=== PATIENT | male | born 1960 | race Caucasian/White ===

== ENCOUNTER 2018-10-25 12:27 | Observation (INO) ==
[2018-10-25] MEDS ORDERED: 0.9 % Sodium Chloride 1,000 ML IVC ONE ×2 (12:42→18:08)
[2018-10-25] MEDS ORDERED: Isovue-370 500 ML BOTTLE IVP ONE (13:05)
[2018-10-25 13:14] LABS: Basophils % 0.3 %; Eosinophils % 0.3 %; Hematocrit 32.6 % (37.5-50.1); Hemoglobin 10.7 g/dL (12.9-16.9); Immature Granulocytes % 0.6 % (0-4); Lymphocytes % 9.9 %; Mean Corpuscular HGB Conc 32.8 g/dL (31.6-35.5); Mean Corpuscular Hemoglobin 29.1 pg (28.0-33.3); Mean Corpuscular Volume 88.6 fL (83.0-100.0); Monocytes # 0.6 K/mcL (0.0-1.3); Monocytes % 5.9 %; Neutrophils # 8.5 K/mcL (1.6-8.9); Platelet Count 473 K/mcL (140-400); Red Blood Count 3.68 M/mcL (4.19-5.50); Red Cell Distribution Width 13.2 % (11.5-14.5); White Blood Count 10.3 K/mcL (4.3-11.1)
[2018-10-25 13:17] LABS: INR 1.4; Prothrombin Time 16.3 Seconds (9.4-12.1)
[2018-10-25 13:19] LABS: Activated Partial Thrombo Time 29.3 Seconds (26.0-36.0)
--- NOTE | 2018-10-25 13:20 | Emergency Department Note ---
Disposition Clinical Impression: Fever of unknown origin, Esophageal mass, Elevated procalcitonin Disposition: Admitted As Inpatient Condition: Good Time of Disposition: 17:26 Fever HPI - General Chief Complaint: ED Fever Stated Complaint: fever, abnormal CT Time Seen by Provider: 10/25/18 12:36 Source: patient Limitations: no limitations Nursing Notes Reviewed: Yes Vital Signs Reviewed: Yes - History of Present Illness HPI Narrative: 57-year-old male otherwise healthy presents to the emergency department with abnormal CT scan of the abdomen and fevers. He has been follow with his primary care provider Sakina Philip who recently treated him for urinary tract infection roughly 2 weeks ago. Since then he has had progressive fevers which subsequently led to a CT scan on the . CT scan showed concerns for mass and metastasis. He sensed had persistent fevers with a 12 pound weight loss in the past month with night sweats. No family history of cancer. He was a former smoker. He denies any urinary symptoms at this time. Denies any discomfort chest pain shortness of breath or cough. He has noticed his abdomen is slightly larger than usual. No prior abdominal surgeries. He is scheduled to follow up with oncology but has not had a scheduled appointment yet they are awaiting a call back. Because of the persistent fevers he spoke to his primary care provider who told him to come here to be further evaluated. Pt Subjective Complaint: fever - Related Data Home Medications Medication Instructions Recorded Confirmed Omeprazole [PriLOSEC] 20 mg PO DAILY 02/05/16 10/25/18 Allergies Allergy/AdvReac Type Severity Reaction Status Date / Time No Known Allergies Allergy Verified 07/14/17 09:31 All systems ED: reviewed and negative except as stated. Review of Systems: As Per HPI Constitutional: Reports: fever, weight change, night sweats ENT ED: Denies: congestion Cardiovascular: Denies: chest pain Respiratory: Denies: dyspnea Gastrointestinal: Denies: abdominal pain, nausea, vomiting, melena, hematochezia Genitourinary: Denies: dysuria Musculoskeletal: Denies: back pain Integumentary: Denies: rash, abrasion Endocrine: Denies: fatigue Fever PMH - Past Medical History Medical history: Reports: GERD Psychiatric history: Reports: no psych history - Social History Smoking Status: Never smoker Alcohol use: Reports: occasionally Drug use: Reports: none Physical Exam - General Limitations: no limitations General appearance: alert, in no apparent distress, other (Warm to the touch) - Head Head exam: atraumatic, normocephalic, normal inspection - Eye Eye exam: Present: normal appearance, PERRL, EOMI - ENT ENT exam: normal exam, normal oropharynx, mucous membranes moist - Neck Neck exam: Present: normal inspection, full ROM, trachea midline - Chest Chest inspection: Present: normal inspection, symmetric chest wall rise - Respiratory Respiratory exam: Present: normal lung sounds bilaterally. Absent: respiratory distress, wheezes - Cardiovascular Cardiovascular exam: Present: regular rate, normal rhythm, normal heart sounds - Expanded Cardiovascular Exam Peripheral pulses: 2+: radial (R), radial (L) - Abdominal Exam Abdominal exam: Present: soft, Non-Tender, normal bowel sounds. Absent: tenderness, distention, guarding, rebound, rigidity, pulsatile mass, hernia - Extremities Exam Extremities exam: Present: normal inspection, full ROM. Absent: tenderness, pedal edema - Back Exam Back exam: Present: normal inspection, full ROM. Absent: tenderness - Neurological Exam Neurological exam: Present: alert, oriented X3, normal gait - Psychiatric Psychiatric exam: Present: normal affect, normal mood - Skin Skin exam: Present: warm, dry, intact, normal color. Absent: rash, cyanosis, diaphoresis Course Course Narrative: Patient presents with persistent fever and presumed esophageal mass with metastasis. Suspect this is likely due to malignancy but cannot roll out sepsis. Workup initiated including CT scan with contrast. Patient will likely require admission for further evaluation to to have persistent fevers. He otherwise appears in no acute distress with no obvious signs of infection. Lungs are clear auscultation bilaterally. Denies any urinary symptoms. - Reevaluation(s) Reevaluation #1: Review of his labs, no leukocytosis. Chronic stable anemia. His lactate is less than 1. His pro-calcitonin is elevated. There is no obvious sources infection in his urine or chest x-ray. 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 We will discuss with oncology on possible management treatment whether this can stay here versus transfer to [facility] Time: 16:50 Reevaluation #2: After discussion with oncology, patient is appropriate for admission here. Discussed options with the patient and significant other. They wish to stay overnight and discuss options with oncology team here. We also discussed possible transfer to [facility], they wish to await consultation here prior to exploring other options. Patients otherwise stable. - Consultations Consultation #1: Spoke with on-call oncologist Dr. Long and states that we can admit the patient here for further management and evaluation. We discussed elevated pro-ca lcitonin level in at this time will empirically treated with Zosyn due to the unknown persistent fever. This is likely due to the malignancy but unknown. Time: 17:25 Consultation #2: Spoke with on-call hospitalist evy Morales to admit for fever, esophageal mass, and elevated procalcitonin. No further orders at this time Vital Signs Temperature 102.5 F H 10/25/18 12:29 Pulse Rate 108 10/25/18 12:29 Respiratory Rate 18 10/25/18 12:29 Blood Pressure 146/88 10/25/18 12:29 O2 Sat by Pulse Oximetry 97 10/25/18 12:29 Temperature 102.5 F H 10/25/18 12:29 Pulse Rate 108 10/25/18 12:29 Respiratory Rate 18 10/25/18 12:29 Blood Pressure 146/88 10/25/18 12:29 O2 Sat by Pulse Oximetry 97 10/25/18 12:29 Oxygen Delivery Oxygen Delivery Room Air Fever - MDM Narrative Medical decision making narrative: Patient was discussed with my attending physician who agrees with ED management and final disposition. They independently evaluated the patient. Please refer to their attestation to this encounter for additional information. This note was generated by [employer] voice recognition software and as a result grammatical or spelling errors may occur using this program. - Medical Records Medical records reviewed: Yes I reviewed the patient's medical records. - Lab Data Lab results reviewed: Yes I reviewed the patient's lab results. Result diagrams: 10/25/18 12:50 10/25/18 12:50 Lab Results 10/25/18 10/25/18 10/25/18 Range/Units 12:50 12:50 12:50 WBC 10.3 (4.3-11.1) K/mcL RBC 3.68 L (4.19-5.50) M/mcL Hgb 10.7 L (12.9-16.9) g/dL Hct 32.6 L (37.5-50.1) % MCV 88.6 (83.0-100.0) fL MCH 29.1 (28.0-33.3) pg MCHC 32.8 (31.6-35.5) g/dL RDW 13.2 (11.5-14.5) % Plt Count 473 H (140-400) K/mcL MPV 10.0 (9.4-12.4) fL Immature Gran % 0.6 (0-4) % Seg Neutrophils % 83.0 % Lymphocytes % 9.9 % Monocytes % 5.9 % Eosinophils % 0.3 % Basophils % 0.3 % Neutrophils # 8.5 (1.6-8.9) K/mcL Lymphocytes # 1.0 (0.6-4.6) K/mcL Monocytes # 0.6 (0.0-1.3) K/mcL Eosinophils # 0.0 (0.0-0.6) K/mcL Basophils # 0.0 (0.0-0.2) K/mcL PT 16.3 H (9.4-12.1) Seconds INR 1.4 APTT 29.3 (26.0-36.0) Seconds Sodium 131 L (136-145) mEq/L Potassium 3.3 L (3.5-5.1) mEq/L Chloride 95 L (98-107) mEq/L Carbon Dioxide 24 (23-29) mEq/L BUN 13 (6-20) mg/dL Creatinine 0.95 (0.70-1.30) mg/dL Est GFR ( Amer) > 60 (> 60) Est GFR (Non-Af Amer) > 60 (> 60) BUN/Creatinine Ratio 14 (6-26) Glucose 96 (70-105) mg/dL Calculated Osmolality 272 L (280-300) Lactic Acid (0.5-2.2) mmol/L Calcium 8.5 L (8.6-10.3) mg/dL Phosphorus 2.3 L (2.7-4.5) mg/dL Magnesium 1.8 (1.6-2.6) mg/dL Total Bilirubin 0.4 (0.3-1.0) mg/dL Direct Bilirubin 0.2 (0.0-0.2) mg/dL Indirect Bilirubin 0.2 (0.0-1.2) mg/dL AST 22 (13-39) Units/L ALT 25 (7-52) Units/L Alkaline Phosphatase 163 H (34-104) Units/L Troponin I 0.03 (< 0.04) ng/mL Serum Total Protein 7.1 (6.4-8.9) g/dL Albumin 3.1 L (3.5-5.7) g/dL Globulin 4.0 H (2.4-3.5) g/dL Albumin/Globulin Ratio 0.8 L (1.1-2.2) Procalcitonin (0.00-0.15) ng/mL Urine Color (Yellow) Urine Clarity (Clear) Urine pH (5.0-8.0) pH Units Ur Specific [place] (1.010-1.025) Urine Protein (Neg-Trace) mg/dL Urine Glucose (UA) (Normal) mg/dL Urine Ketones (Negative) mg/dL Urine Blood (Negative) Urine Nitrite (Negative) Urine Bilirubin (Negative) Urine Urobilinogen (Normal) mg/dL Ur Leukocyte Esterase (Negative) Urine Microscopic RBC (0-3) per hpf Urine Microscopic WBC (0-3) per hpf Ur Squamous Epith Cells (None-Few) per lpf Urine Bacteria (None-Few) per hpf Hyaline Casts (None-Few) per lpf Ur Culture Indicated? (NO) 10/25/18 10/25/18 10/25/18 Range/Units 12:50 12:50 13:33 WBC (4.3-11.1) K/mcL RBC (4.19-5.50) M/mcL Hgb (12.9-16.9) g/dL Hct (37.5-50.1) % MCV (83.0-100.0) fL MCH (28.0-33.3) pg MCHC (31.6-35.5) g/dL RDW (11.5-14.5) % Plt Count (140-400) K/mcL MPV (9.4-12.4) fL Immature Gran % (0-4) % Seg Neutrophils % % Lymphocytes % % Monocytes % % Eosinophils % % Basophils % % Neutrophils # (1.6-8.9) K/mcL Lymphocytes # (0.6-4.6) K/mcL Monocytes # (0.0-1.3) K/mcL Eosinophils # (0.0-0.6) K/mcL Basophils # (0.0-0.2) K/mcL PT (9.4-12.1) Seconds INR APTT (26.0-36.0) Seconds Sodium (136-145) mEq/L Potassium (3.5-5.1) mEq/L Chloride (98-107) mEq/L Carbon Dioxide (23-29) mEq/L BUN (6-20) mg/dL Creatinine (0.70-1.30) mg/dL Est GFR ( Amer) (> 60) Est GFR (Non-Af Amer) (> 60) BUN/Creatinine Ratio (6-26) Glucose (70-105) mg/dL Calculated Osmolality (280-300) Lactic Acid 0.7 (0.5-2.2) mmol/L Calcium (8.6-10.3) mg/dL Phosphorus (2.7-4.5) mg/dL Magnesium (1.6-2.6) mg/dL Total Bilirubin (0.3-1.0) mg/dL Direct Bilirubin (0.0-0.2) mg/dL Indirect Bilirubin (0.0-1.2) mg/dL AST (13-39) Units/L ALT (7-52) Units/L Alkaline Phosphatase (34-104) Units/L Troponin I (< 0.04) ng/mL Serum Total Protein (6.4-8.9) g/dL Albumin (3.5-5.7) g/dL Globulin (2.4-3.5) g/dL Albumin/Globulin Ratio (1.1-2.2) Procalcitonin 9.13 H (0.00-0.15) ng/mL Urine Color Yellow (Yellow) Urine Clarity Clear (Clear) Urine pH 7.0 (5.0-8.0) pH Units Ur Specific [place] 1.021 (1.010-1.025) Urine Protein 30 H (Neg-Trace) mg/dL Urine Glucose (UA) Normal (Normal) mg/dL Urine Ketones Negative (Negative) mg/dL Urine Blood Negative (Negative) Urine Nitrite Negative (Negative) Urine Bilirubin Negative (Negative) Urine Urobilinogen Normal (Normal) mg/dL Ur Leukocyte Esterase Negative (Negative) Urine Microscopic RBC 0-3 (0-3) per hpf Urine Microscopic WBC 0-3 (0-3) per hpf Ur Squamous Epith Cells Moderate H (None-Few) per lpf Urine Bacteria None Seen (None-Few) per hpf Hyaline Casts None Seen (None-Few) per lpf Ur Culture Indicated? NO (NO) - Radiology Data Radiology results reviewed: Yes I reviewed the patient's radiology results. Abdomen/Pelvis CT 10/25/18 13:05 IMPRESSION: 1. Persistent distal esophageal mass, most consistent with primary esophageal carcinoma. 2. Stable large focus of intrahepatic metastatic disease. 3. Stable subcarinal, distal paraesophageal, gastrohepatic ligament, and bennie hepatic lymphadenopathy, most consistent with locoregional metastatic disease. D/ / 10/25/2018 16:45:17 Blanco Castillo MD / edwin Interpreting Provider: Blanco Castillo MD Chest CT 10/25/18 13:05 IMPRESSION: 1. Persistent distal esophageal mass, most consistent with primary esophageal carcinoma. 2. Stable large focus of intrahepatic metastatic disease. 3. Stable subcarinal, distal paraesophageal, gastrohepatic ligament, and bennie hepatic lymphadenopathy, most consistent with locoregional metastatic disease. D/ / 10/25/2018 16:45:17 Blanco Castillo MD / edwin Interpreting Provider: Blanco Castillo MD - EKG Data EKG attestation: Yes I reviewed and interpreted this EKG. EKG results narrative: EKG performed 1254 normal sinus rhythm 87 beats per minute, normal axis, early R wave progression, no ST elevation or depression. Intervals appear within normal limits. Compared to prior EKG performed 02/04/2016 shows similar consistent findings. No acute ischemic changes. Attestation Statement - Attestation Attestation: I, Kahlil Jeffries, examined this patient and my medical decision-making was reviewed with the SHOE SINGER/PA/Advanced Practice Nurse/Resident Physician. I agree with the documented findings, disposition and treatment plan as described except to the extent set forth below. 57-year-old male presents emergency Department with concerns of fever. Patient was recently diagnosed with esophageal and liver cancer. He was treated for a possible urinary tract infection however his fever did not improve. Patient does not have pain in the emergency department. He denies nausea, vomiting, diarrhea, hematochezia, melena. Repeat CT of the chest abdomen pelvis showed his cancer but does not show an obvious source of infection. He did have an elevated pro-calcitonin and I believe that he probably has a bacterial infection. Blood cultures were taken and antibiotics were started. We spoke with the oncologist who is comfortable with him staying at this facility for further workup. Patient was offered transfer to [facility] for evaluation of possible surgical intervention. Patient declined and wishes to stay at [facility].
[2018-10-25 13:45] LABS: Bilirubin,Urine Negative (Negative); Blood,Urine Negative (Negative); Clarity,Urine Clear (Clear); Color,Urine Yellow (Yellow); Glucose,Urine (UA) Normal (Normal); Ketones,Urine Negative (Negative); Leukocyte Esterase,Urine Negative (Negative); Nitrite,Urine Negative (Negative); Protein,Urine 30 mg/dL (Neg-Trace); Specific Gravity,Urine 1.021 (1.010-1.025); Urobilinogen,Urine Normal (Normal)
[2018-10-25 13:48] LABS: Bacteria,Urine None Seen per hpf (None-Few); Hyaline Casts,Urine None Seen per lpf (None-Few); RBC,Urine 0-3 per hpf (0-3); Squamous Epithelial Cell,Urine Moderate per lpf (None-Few); WBC,Urine 0-3 per hpf (0-3)
[2018-10-25 13:59] LABS: Troponin I 0.03 ng/mL (< 0.04)
[2018-10-25 15:05] LABS: Alanine Aminotransferase 25 Units/L (7-52); Albumin 3.1 g/dL (3.5-5.7); Albumin/Globulin Ratio 0.8 (1.1-2.2); Alkaline Phosphatase 163 Units/L (34-104); Aspartate Amino Transferase 22 Units/L (13-39); BUN/Creatinine Ratio 14 (6-26); Bilirubin,Direct 0.2 mg/dL (0.0-0.2); Bilirubin,Indirect 0.2 mg/dL (0.0-1.2); Bilirubin,Total 0.4 mg/dL (0.3-1.0); Blood Urea Nitrogen 13 mg/dL (6-20); Calcium 8.5 mg/dL (8.6-10.3); Carbon Dioxide 24 mEq/L (23-29); Chloride 95 mEq/L (98-107); Glucose 96 mg/dL (70-105); Magnesium 1.8 mg/dL (1.6-2.6); Osmolality,Calculated 272 (280-300); Phosphorous 2.3 mg/dL (2.7-4.5); Potassium 3.3 mEq/L (3.5-5.1); Sodium 131 mEq/L (136-145); Total Protein 7.1 g/dL (6.4-8.9); eGFR For African Americans > 60 (> 60); eGFR For Non-African Americans > 60 (> 60)
[2018-10-25] MEDS ORDERED: Piperacillin/Tazobactam 3.375 GM in 0.9 % Sodium Chloride Mini Bag 100 ML IVPB ONE (17:18)
--- NOTE | 2018-10-25 18:05 | Event Note ---
Date of Encounter: 10/25/18 Time of Encounter: 18:00 I had a discussion with the patient and his at bedside about the newly diagnosed esophageal cancer with possible metastasis, the discussion was focused on translating to [facility] versus is staying locally, even though the patient appreciated the convenience of being initiating treatment locally, there is a concern about the severity of his condition giving his young age, and then and for multidisciplinary team include surgical oncology expertise, the patient expressed wishes to be transferred to [facility] however he requested that his transferred to be in the morning since his 's cannot drive and he really would like to have her along with him. I discussed with Dr. Rdz and the admission team and decision was made to admit the patient overnight and she ate fluid and antibiotics and arrange for transfer in AM.
[2018-10-25] MEDS ORDERED: Ondansetron 4 MG/2 ML VIAL IVP PRN (18:06)
[2018-10-25] MEDS ORDERED: Naloxone 0.4 MG/ML INJ IVP PRN (18:06)
--- NOTE | 2018-10-25 18:06 | Internal Med History&Physical ---
<Hernan Rdz - Last Filed: 10/25/18 19:03> Date of Encounter: 10/25/18 Internal Medicine - H&P: HPI History of present illness: Mr. Castrejon is a 57 year old male Internal Medicine - H&P: Meds Omeprazole [PriLOSEC] 20 mg PO DAILY 02/05/16 [History] Allergy/AdvReac Type Severity Reaction Status Date / Time No Known Allergies Allergy Verified 07/14/17 09:31 All Systems PM: A 10-system review of systems was performed and is negative for pertinent findings except as documented above in the HPI. - Constitutional Vitals: Temp Pulse Resp BP Pulse Ox 98.6 F 79 15 146/85 97 10/25/18 18:19 10/25/18 18:19 10/25/18 18:19 10/25/18 18:19 10/25/18 18:19 Internal Med - H&P Results - Labs CBC & Chem 7: 10/25/18 12:50 10/25/18 12:50 Labs: Short CBC 10/25/18 Range/Units 12:50 WBC 10.3 (4.3-11.1) K/mcL Hgb 10.7 L (12.9-16.9) g/dL Hct 32.6 L (37.5-50.1) % Plt Count 473 H (140-400) K/mcL Neutrophils # 8.5 (1.6-8.9) K/mcL BMP 10/25/18 12:50 Sodium 131 L Potassium 3.3 L Chloride 95 L Carbon Dioxide 24 BUN 13 Creatinine 0.95 Glucose 96 Calcium 8.5 L Cardiac Enzymes 10/25/18 Range/Units 12:50 Troponin I 0.03 (< 0.04) ng/mL Liver Function 10/25/18 Range/Units 12:50 Total Bilirubin 0.4 (0.3-1.0) mg/dL Direct Bilirubin 0.2 (0.0-0.2) mg/dL AST 22 (13-39) Units/L ALT 25 (7-52) Units/L Alkaline Phosphatase 163 H (34-104) Units/L Albumin 3.1 L (3.5-5.7) g/dL Urine 10/25/18 Range/Units 13:33 Urine Color Yellow (Yellow) Urine Clarity Clear (Clear) Urine pH 7.0 (5.0-8.0) pH Units Ur Specific [place] 1.021 (1.010-1.025) Urine Protein 30 H (Neg-Trace) mg/dL Urine Glucose (UA) Normal (Normal) mg/dL - Impressions ITS Impressions Abdomen/Pelvis CT 10/25/18 13:05 IMPRESSION: 1. Persistent distal esophageal mass, most consistent with primary esophageal carcinoma. 2. Stable large focus of intrahepatic metastatic disease. 3. Stable subcarinal, distal paraesophageal, gastrohepatic ligament, and bennie hepatic lymphadenopathy, most consistent with locoregional metastatic disease. D/ / 10/25/2018 16:45:17 Blanco Castillo MD / edwin Interpreting Provider: Blanco Castillo MD Chest CT 10/25/18 13:05 IMPRESSION: 1. Persistent distal esophageal mass, most consistent with primary esophageal carcinoma. 2. Stable large focus of intrahepatic metastatic disease. 3. Stable subcarinal, distal paraesophageal, gastrohepatic ligament, and bennie hepatic lymphadenopathy, most consistent with locoregional metastatic disease. D/ / 10/25/2018 16:45:17 Blanco Castillo MD / edwin Interpreting Provider: Blanco Castillo MD - Time Spent With Patient Total time spent is greater than 50% in coordination of care (as documented) at patient's floor/unit and/or counseling patient: - Attending Attestation I examined this patient and my medical decision-making was reviewed with the Resident Physician on 10/25/18. I agree with the documented findings, disposition and treatment plan as described except to the extent set forth below. Mr Castrejon is 57y/o male with no hx presented to ED with fever and abnormal CT. He denies pain but has had weight loss. Recent treatment for UTI. CT shows distal esophageal mass and liver met. Pt seen in ED with at bedside. Exam: Alert. Comfortable Mucus membranes moist. Heart reg. Lungs clear. F urther exam as above. CT - large distal esophageal mass with liver met Plan: Monitor. Pt deciding to go to [facility]. IV abx for sepsis. 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 Castrejon is a 57 year old male with history of GERD who presents to [facility] with one month history of intermittent fever. The patient states that he first started experiencing fever and flulike symptoms on 09/12/18, at which time he called a [facility] and was prescribed Tamiflu for 5 days. Apparently at that time he felt better following that course of medication however on 10/08 he started to develop flulike symptoms again including high-grade fever as high as 103. The patient was overall just feeling bad with fever, low back pain specifically on the left and generalized malaise. In addition this he was having sweats and chills. The patient called his [facility] again and was told to go to an urgent care, and when he did he was diagnosed with urinary tract infection at which time he was initially placed on amoxicillin however upon finding cultures he was given ciprofloxacin which he finished approximately one week ago. At that time he had ulcers which were positive for Klebsiella oxytoca. Despite treatment with ciprofloxacin, the patient continued to have fevers and generalized malaise as well as generalized weakness, and he generally just did not start to feel better. He also found a lump in his right breast and so he saw a new primary care physician who ordered a mammogram. Then, towards the end of September, because he was continuing to have left lower flank pain, the patient had a CT of the abdomen and pelvis at which time he was found to have a masslike appearance of the distal esophagus as well as a large liver mass suspicious for metastatic liver disease. The patient continued to feel bad until he finally presented to the hospital today. At this time, the patient says that he is continues to have flulike symptoms, generalized malaise, high fevers and chills. He apparently is unable to keep h imself warm and has been laying outside in the hot sun with blankets on in order to warm up. In addition of this, the patient has had very little appetite in general, and has not had interest in eating. He has had approximately 12 pounds weight loss over the course of one month which is unexplained. He denies any chest pains, shortness of breath, cough, sputum production, abdominal pain, nausea, vomiting, diarrhea, hematochezia, dysuria, urinary frequency, hematuria. In general, his review of systems is overall negative. In the emergency room, the patient had labs which were significant for a sodium of 131, potassium 3.3, hemoglobin 10.7, INR 1.4, alkaline phosphatase 163, pro-calcitonin 9.13. He did meet sepsis criteria with a temperature 102.5, heart rate 108, with pneumonia vs. UTI as possible infectious sources given history. The patient had CTs of his chest and abdomen which showed redemonstration of a distal esophageal mass consistent with primary esophageal carcinoma and intrahepatic metastatic disease as well as substantial paraesophageal and intra-abdominal lymphadenopathy. The patient received 1 L bolus of fluid and was started on Zosyn for empiric coverage. Upon reviewing films and medical history, the patient was offered transfer to [facility] immediately however his is unable to drive at night due to recent eye infections and it was determined that it would be better to wait until the morning. Social Hx: The patient lives at home with his . 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 He denies tobacco use as he quit approximately 7 years ago. Infrequent use of alcohol, denies illicit drug use. Drinks approximately 4 bottles of Mountain Dew a day. Family Hx: Extensive family history of lung cancer however he does have extensive family history of smoking Surgical Hx: He apparently had some nodules in his neck removed which were considered to be benign and has had multiple orthopedic surgeries as well which are noncontributory Past Med Surg Social Fam HX - Past Medical History Medical history: GERD Additional medical history: skin Psychiatric history: no psych history - Past Surgical History Additional surgical history: throat surgery - Social History Smoking Status: Never smoker Smokeless Tobacco Status: No Alcohol use: occasionally Drug use: none All Systems PM: A 10-system review of systems was performed and is negative for pertinent findings except as documented above in the HPI. Review of systems: Constitutional: Admits to fevers, chills, 12 pounds weight loss over one month, generalized fatigue Head/Neck: Denies WILSON, neck stiffness EENT: Denies vision changes/blurriness, rhinorrhea, congestion, sore throat CVS: Denies chest pain, palpitations, DIAZ, orthopnea, edema, PND Pulm: Denies SOB, cough, sputum, hemoptysis, wheezing GI: Denies abdominal pain, nausea, vomiting, diarrhea, constipation, melena, hematemasis : Denies dysuria, increased frequency, urgency, hematuria Heme: Denies ease of bleeding or bruising MSK: Denies joint pain, limited ROM Skin: Denies rashes, color changes Neuro: Denies WILSON, paresthesias - Constitutional Vitals: Temp Pulse Resp BP Pulse Ox 102.5 F H 108 18 146/88 97 10/25/18 12:29 10/25/18 12:29 10/25/18 12:29 10/25/18 12:29 10/25/18 12:29 Exam: Gen: Vitals noted. No acute distress. Eyes: anicteric sclerae, moist conjunctivae; no lid-lag; Pupils equal and reactive to light HENT: Atraumatic; oropharynx clear with moist mucous membranes and no mucosal ulcerations; normal hard and soft palate Neck: Trachea midline; supple, no thyromegaly or lymphadenopathy Cardiac: RRR, no murmur, +S1/S2 Pulmonary: CTA bilaterally, no wheezes, rales or rhonchi, equal chest expansion Abdomen: soft, nontender, no guarding. There is mild distention however no tenderness with this. No masses or hepatosplenomegaly MSK: ROM intact, no joint swelling noted Extremities: no BLE edema, nontender calf, no cyanosis or clubbing Skin: Normal temperature, turgor and texture; no rash, ulcers or subcutaneous nodules Neuro: moves all extremities, no focal deficits. Psych: Appropriate mood and behavior. A&Ox3 Internal Med - H&P Results - Labs CBC & Chem 7: 10/25/18 12:50 10/25/18 12:50 Labs: Short CBC 10/25/18 Range/Units 12:50 WBC 10.3 (4.3-11.1) K/mcL Hgb 10.7 L (12.9-16.9) g/dL Hct 32.6 L (37.5-50.1) % Plt Count 473 H (140-400) K/mcL Neutrophils # 8.5 (1.6-8.9) K/mcL BMP 10/25/18 12:50 Sodium 131 L Potassium 3.3 L Chloride 95 L Carbon Dioxide 24 BUN 13 Creatinine 0.95 Glucose 96 Calcium 8.5 L Cardiac Enzymes 10/25/18 Range/Units 12:50 Troponin I 0.03 (< 0.04) ng/mL Liver Function 10/25/18 Range/Units 12:50 Total Bilirubin 0.4 (0.3-1.0) mg/dL Direct Bilirubin 0.2 (0.0-0.2) mg/dL AST 22 (13-39) Units/L ALT 25 (7-52) Units/L Alkaline Phosphatase 163 H (34-104) Units/L Albumin 3.1 L (3.5-5.7) g/dL Urine 10/25/18 Range/Units 13:33 Urine Color Yellow (Yellow) Urine Clarity Clear (Clear) Urine pH 7.0 (5.0-8.0) pH Units Ur Specific [place] 1.021 (1.010-1.025) Urine Protein 30 H (Neg-Trace) mg/dL Urine Glucose (UA) Normal (Normal) mg/dL - Impressions ITS Impressions Abdomen/Pelvis CT 10/25/18 13:05 IMPRESSION: 1. Persistent distal esophageal mass, most consistent with primary esophageal carcinoma. 2. Stable large focus of intrahepatic metastatic disease. 3. Stable subcarinal, distal paraesophageal, gastrohepatic ligament, and bennie hepatic lymphadenopathy, most consistent with locoregional metastatic disease. D/ / 10/25/2018 16:45:17 Blanco Castillo MD / edwin Interpreting Provider: Blanco Castillo MD Chest CT 10/25/18 13:05 IMPRESSION: 1. Persistent distal esophageal mass, most consistent with primary esophageal carcinoma. 2. Stable large focus of intrahepatic metastatic disease. 3. Stable subcarinal, distal paraesophageal, gastrohepatic ligament, and bennie hepatic lymphadenopathy, most consistent with locoregional metastatic disease. D/ / 10/25/2018 16:45:17 Blanco Castillo MD / edwin Interpreting Provider: Blanco Castillo MD - Assessment and Plan (1) Sepsis Current Visit: Yes Status: Acute Assessment and plan: Sepsis secondary to unknown etiology, likely pneumonia versus UTI SIRS Criteria: T102.5, HR 108, suspected source pneumonia versus UTI Patient does have recent urinary tract infection with Klebsiella oxytoca, unknown etiology He does have multiple risk factors for infection with aspiration pneumonia including nearly obstructive distal esophageal mass and GERD He does not present with symptoms consistent with pneumonia at this time and his imaging is negative, however pro calcitonin is 9.13 Also consider possible recurrent urinary tract infection as patient says he never really recovered with treatment Other notable findings: Cholelithiasis on imaging with elevated alkaline phosphatase 163 Received 1 L IV fluids in the ED Cultures 10/25/18 blood cultures NGTD x2 10/10/18 urine culture Klebsiella oxytoca Antibiotic Unasyn 1.5g IV q6h Day 1 Plan We will treat patient as sepsis, IVF with 30 mL/kg per protocol, then 100mL/hr Start empiric antibiotic therapy with Unasyn to cover PNA + Possible UTI De-escalation of antibiotics will depend on culture results Duration of treatment pending clinical course Continue to monitor, plan to transfer in the morning Qualifiers: Sepsis type: sepsis due to unspecified organism Qualified Code(s): A41.9 - Sepsis, unspecified organism (2) Esophageal mass Current Visit: Yes Status: Acute Assessment and plan: Esophageal mass, likely primary Patient has not had any workup for this in the past Suspect that this is the primary cause of the patient's syndrome We will plan to transfer the patient to [facility] in the morning This plan has been relayed to hematology and oncology here and they agree with the plan (3) Liver mass Current Visit: Yes Status: Acute Assessment and plan: Liver mass, likely secondary to metastatic disease Further workup will likely occur in [facility] (4) GERD (gastroesophageal reflux disease) Current Visit: Yes Status: Chronic Assessment and plan: Chronic condition, continue home meds Qualifiers: Esophagitis presence: esophagitis presence not specified Qualified Code(s): K21.9 - Gastro-esophageal reflux disease without esophagitis (5) Anemia Current Visit: Yes Status: Acute Assessment and plan: Anemia of unknown etiology Most likely secondary to chronic disease in setting of esophageal cancer Qualifiers: Anemia type: unspecified type Qualified Code(s): D64.9 - Anemia, unspecified - Time Spent With Patient Total time spent is greater than 50% in coordination of care (as documented) at patient's floor/unit and/or counseling patient:
[2018-10-25] MEDS ORDERED: Potassium Phosphate 44 MEQ in 0.9 % Sodium Chloride 250 ML IVPB ONE (19:38)
[2018-10-25] MEDS: 0.9 % Sodium Chloride 1,000 ML IVC SCH (20:50)
[2018-10-25] MEDS: *HR* Heparin 5,000 UNIT/ML VIAL SQ SCH (21:38)
[2018-10-25] MEDS: Ampicillin/Sulbactam 1,500 MG in 0.9 % Sodium Chloride Mini Bag 100 ML IVPB SCH (23:31)
[2018-10-26] MEDS ORDERED: Acetaminophen 325 MG TABLET PO PRN (00:35)
[2018-10-26] MEDS: Ampicillin/Sulbactam 1,500 MG in 0.9 % Sodium Chloride Mini Bag 100 ML IVPB SCH (05:08)
[2018-10-26] MEDS: *HR* Heparin 5,000 UNIT/ML VIAL SQ SCH (05:09)
[2018-10-26 05:53] LABS: Basophils # 0.1 K/mcL (0.0-0.2); Basophils % 0.6 %; Eosinophils # 0.1 K/mcL (0.0-0.6); Eosinophils % 0.5 %; Hematocrit 29.6 % (37.5-50.1); Hemoglobin 9.6 g/dL (12.9-16.9); Immature Granulocytes % 0.8 % (0-4); Lymphocytes # 1.6 K/mcL (0.6-4.6); Lymphocytes % 15.4 %; Mean Corpuscular HGB Conc 32.4 g/dL (31.6-35.5); Mean Corpuscular Hemoglobin 29.1 pg (28.0-33.3); Mean Corpuscular Volume 89.7 fL (83.0-100.0); Mean Platelet Volume 10.3 fL (9.4-12.4); Monocytes # 0.9 K/mcL (0.0-1.3); Monocytes % 8.8 %; Neutrophils # 7.8 K/mcL (1.6-8.9); Platelet Count 436 K/mcL (140-400); Red Cell Distribution Width 13.3 % (11.5-14.5); Segmented Neutrophils % 73.9 %; White Blood Count 10.6 K/mcL (4.3-11.1)
[2018-10-26 05:56] LABS: INR 1.6; Prothrombin Time 18.7 Seconds (9.4-12.1)
[2018-10-26 06:12] LABS: Alanine Aminotransferase 24 Units/L (7-52); Albumin 2.6 g/dL (3.5-5.7); Albumin/Globulin Ratio 0.7 (1.1-2.2); Alkaline Phosphatase 185 Units/L (34-104); Aspartate Amino Transferase 22 Units/L (13-39); BUN/Creatinine Ratio 11 (6-26); Bilirubin,Total 0.4 mg/dL (0.3-1.0); Blood Urea Nitrogen 10 mg/dL (6-20); Carbon Dioxide 26 mEq/L (23-29); Chloride 101 mEq/L (98-107); Globulin 3.5 g/dL (2.4-3.5); Glucose 96 mg/dL (70-105); Magnesium 1.8 mg/dL (1.6-2.6); Osmolality,Calculated 285 (280-300); Phosphorous 3.6 mg/dL (2.7-4.5); Potassium 3.6 mEq/L (3.5-5.1); Sodium 138 mEq/L (136-145); Total Protein 6.1 g/dL (6.4-8.9); eGFR For African Americans > 60 (> 60); eGFR For Non-African Americans > 60 (> 60)
[2018-10-26 06:48] VITALS: BP 128/69
--- NOTE | 2018-10-26 07:26 | Discharge Summary ---
<Brennen Cayr - Last Filed: 10/26/18 09:09> - NOTES TO OUTPATIENT PROVIDER Notes to Outpatient Provider: Patient transferred to [facility] for further workup and care. Orders not resulted at time of discharge: Pending orders 10/25/18 12:42 ECG 12 lead ECG [ECG] Stat 10/25/18 12:45 Culture,Blood [BC] Stat Date of Encounter: 10/26/18 Time of Encounter: 07:26 - Discharge Diagnosis (1) Sepsis Priority: Primary Status: Acute Qualifiers: Sepsis type: sepsis due to unspecified organism Qualified Code(s): A41.9 - Sepsis, unspecified organism (2) Esophageal mass Priority: Secondary Status: Acute (3) Liver mass Priority: Secondary Status: Acute (4) GERD (gastroesophageal reflux disease) Priority: Secondary Status: Chronic Qualifiers: Esophagitis presence: esophagitis presence not specified Qualified Code(s): K21.9 - Gastro-esophageal reflux disease without esophagitis (5) Anemia Priority: Secondary Status: Acute Qualifiers: Anemia type: unspecified type Qualified Code(s): D64.9 - Anemia, unspecified Hospital course: Dear Doctors, I recently had the opportunity to care for this patient during their recent hospital stay at [facility]. Mr. Castrejon is a 57-year-old gentleman with history of GERD who presented to [facility] with 1 month history of persistent intermittent high-grade fevers over the course of the past month, he has been having generalized malaise, high fevers, some low back pain. He was diagnosed with a urinary tract infection with cultures positive for klebsiella oxytoca for which he was treated with cipro however he did not show significant improvement. Due to continued flank pain, the patient underwent an outpatient CT abd/pelvis on 10/19 which showed distal esophageal mass concerning for primary esophageal carcinoma with metastatic mass to the liver. The patient presented at the time of admission with continued high-grade fevers and generalized malaise as well as generalized weakness. At the time of admission the patient had a fever of 102.5 and overall was feeling very poor. He again had a CT of the chest/abdomen/pelvis which redemonstrated distal esophageal mass with large liver mass concerning for metastatic disease. In addition of this, the patient complained of 12 pound weight loss over the past month which was unexplained. He had no real symptoms outside of this. On admission, the patient was placed on Unasyn for empiric coverage of aspiration pneumonia and urinary tract infection as the patient did have elevated pro-calcitonin and severe fevers as well as sepsis criteria with fever and tachycardia. He was given fluids in the emergency department and placed on maintenance fluids. He did continue to have elevations of temperature and generalized malaise. His fever did break overnight, however he was interested in transfer to [facility] for further workup. This was initiated first thing in the morning, and the patient was accepted by Dr. Kanchan Presley. Dx: Esophageal mass with metastatic disease Pertinent tests/consults: CT Chest/abd/pelvis with distal esophageal mass, large intrahepatic metastatic disease and multiple large foci of intrathoracic and intra-abdominal adenopathy. Pending: Blood cultures 10/25/18 NGTD x2 Mental status: awake, fully oriented Diet: Patient has been NPO except ice chips since midnight 10/26 Code status: Full Code Time spent on discharge: 35 minutes It has been my pleasure participating in this patient's care. Please contact me with any questions or concerns regarding their hospital stay. Sincerely, Brennen Cary, DO Discharge discussed with: patient, family, nurse - Time Spent with Patient Total time spent providing and/or coordinating discharge services: - Discharge Medications Prescriptions: New Acetaminophen [Tylenol] 650 mg PO Q6HR PRN tablet PRN Reason: mild pain/fever Continued Omeprazole [PriLOSEC] 20 mg PO DAILY Home Medications: Omeprazole [PriLOSEC] 20 mg PO DAILY 02/05/16 [History] Acetaminophen [Tylenol] 650 mg PO Q6HR PRN tablet 10/26/18 [Rx] Allergies/Adverse Reactions: Allergy/AdvReac Type Severity Reaction Status Date / Time No Known Allergies Allergy Verified 07/14/17 09:31 Date of admission: 10/25/18 18:56 Primary care physician: Sakina Philip CNP Consults: 10/25/18 20:31 Consult to Nutrition [CONS] Routine Comment: Consulting Provider: NUTRITION Reason for Dietary Consult: MST Score Discharging clinician: Brennen Cary Anticipated date of discharge: 10/26/18 - Constitutional Vitals: Temp Pulse Resp BP Pulse Ox 99.4 F 68 16 128/69 94 10/26/18 06:44 10/26/18 06:44 10/26/18 06:44 10/26/18 06:44 10/26/18 06:44 Exam: Gen: Vitals noted. No acute distress. Eyes: anicteric sclerae, moist conjunctivae; no lid-lag; Pupils equal and reactive to light HENT: Atraumatic; oropharynx clear with moist mucous membranes and no mucosal ulcerations; normal hard and soft palate Neck: Trachea midline; supple, no thyromegaly or lymphadenopathy Cardiac: RRR, no murmur, +S1/S2 Pulmonary: CTA bilaterally, no wheezes, rales or rhonchi, equal chest expansion Abdomen: soft, nontender, no guarding. There is mild distention however no tenderness with this. No masses or hepatosplenomegaly MSK: ROM intact, no joint swelling noted Extremities: no BLE edema, nontender calf, no cyanosis or clubbing Skin: Normal temperature, turgor and texture; no rash, ulcers or subcutaneous nodules Neuro: moves all extremities, no focal deficits. Psych: Appropriate mood and behavior. A&Ox3 - Patient Status Disposition: Transfer Other Condition: Good Functional capacity at discharge: independent ambulation Overall status at discharge: patient is progressing back to baseline - Discharge Instructions Follow Up With: Sakina Philip, FINANCIAL BUSINESS ANALYST [Primary Care Provider] - - Diet and Activity Activity: increase activity as tolerated <Hernan Rdz - Last Filed: 10/26/18 12:31> Orders not resulted at time of discharge: Pending orders 10/25/18 12:42 ECG 12 lead ECG [ECG] Stat 10/25/18 12:45 Culture,Blood [BC] Stat Date of Encounter: 10/26/18 - Discharge Diagnosis (1) Esophageal cancer Priority: Primary Status: Suspected Qualifiers: Malignant neoplasm of esophagus location: lower third Qualified Code(s): C15.5 - Malignant neoplasm of lower third of esophagus (2) Esophageal mass Status: Acute (3) Sepsis Status: Acute Qualifiers: Sepsis type: sepsis due to unspecified organism Qualified Code(s): A41.9 - Sepsis, unspecified organism (4) Anemia Status: Suspected Qualifiers: Anemia type: other cause Other causes of anemia: chronic disease, neoplastic Qualified Code(s): D63.0 - Anemia in neoplastic disease (5) GERD (gastroesophageal reflux disease) Status: Chronic Qualifiers: Esophagitis presence: esophagitis presence not specified Qualified Code(s): K21.9 - Gastro-esophageal reflux disease without esophagitis Hospital course: Mr. Castrejon is a 57 year old male - Time Spent with Patient Total time spent providing and/or coordinating discharge services: Date of admission: 10/25/18 18:56 Primary care physician: Sakina Philip CNP Consults: 10/25/18 20:31 Consult to Nutrition [CONS] Routine Comment: Consulting Provider: NUTRITION Reason for Dietary Consult: MST Score - Constitutional Vitals: Temp Pulse Resp BP Pulse Ox 99.4 F 68 16 128/69 94 10/26/18 06:44 10/26/18 06:44 10/26/18 06:44 10/26/18 06:44 10/26/18 06:44 - Attending Attestation I examined this patient and my medical decision-making was reviewed with the Resident Physician on 10/26/18. I agree with the documented findings, disposition and treatment plan as described except to the extent set forth below. Mr Castrejon has been admitted for sepsis and esophageal mass. He was started on IV abx. He continued to have high fever during the night. Afebrile now. No pain. NPO currently. After further discussion patient and would like to go to [facility] for further work up. [facility] has been contacted and has accepted him. Awaiting bed. D/C time 35min
[2018-10-26] MEDS: 0.9 % Sodium Chloride 1,000 ML IVC SCH (08:28)
--- NOTE | 2018-10-26 13:49 | Electrocardiograph Report ---
[place] [facility] Test Date: 2018-10-25 Pat Name: Darrel Castrejon Department: EXAM10 Room: 3A14 Gender: M [employer] In[employer]: : [id number] Requested By: Terrell Martinez Order Number: [id number] Reading MD: Guido Chen Measurements Intervals [place] Rate: 87 P: 36 PA: 123 QRS: 37 QRSD: 88 T: 36 QT: 373 QTc: 449 Interpretive Statements Sinus rhythm Atrial premature complex Electronically Signed On 10-26-2018 13:48:13 EDT by Guido Chen
[2018-10-28 11:58] LABS: Acinetobacter baumannii by PCR Not Detected (Not Detect); Enterobacter cloacae Cmplx PCR Not Detected (Not Detect); Enterobacteriaceae by PCR Not Detected (Not Detect); Enterococcus by PCR Not Detected (Not Detect); Escherichia coli by PCR Not Detected (Not Detect); Klebsiella oxytoca by PCR Not Detected (Not Detect); Klebsiella pneumoniae by PCR Not Detected (Not Detect); Proteus by PCR Not Detected (Not Detect); Serratia marcescens by PCR Not Detected (Not Detect); Staphylococcus aureus by PCR Not Detected (Not Detect); Staphylococcus by PCR Not Detected (Not Detect); Streptococcus agalactiae(B)PCR Not Detected (Not Detect); Streptococcus by PCR DETECTED (Not Detect); Streptococcus pneumoniae PCR Not Detected (Not Detect); Streptococcus pyogenes (A) PCR Not Detected (Not Detect)
[2018-10-28 11:59] LABS: Candida albicans by PCR Not Detected (Not Detect); Candida glabrata by PCR Not Detected (Not Detect); Candida krusei by PCR Not Detected (Not Detect); Candida parapsilosis by PCR Not Detected (Not Detect); Candida tropicalis by PCR Not Detected (Not Detect); Pseudomonas aeruginosa by PCR Not Detected (Not Detect)
== END 2018-10-26 12:20 | disposition critical access hospital (66) ==
LOC: EMEROOARM 12:27 → 3ANU 12:27 → SUATTDRO 18:56 → 3ANU 19:48
PROVIDERS: ADMIT Internal Medicine Nephrology; ATTEND Internal Medicine

== ENCOUNTER 2019-01-03 23:20 | Inpatient (IN) ==
--- NOTE | 2019-01-04 00:06 | Emergency Department Note ---
Disposition Clinical Impression: Fever of unknown origin Disposition: Admitted As Inpatient Condition: Fair Referrals: Sakina Philip, [facility] [Primary Care Provider] - Forms: ED Satisfaction Letter Time of Disposition: 01:10 Fever HPI - General Chief Complaint: ED Fever Stated Complaint: FEVER/PORT/CHEMO Time Seen by Provider: 01/03/19 23:37 Source: patient Mode of arrival: ambulatory Limitations: no limitations Nursing Notes Reviewed: Yes Vital Signs Reviewed: Yes - History of Present Illness HPI Narrative: 58-year-old male presented to the emergency department complaining of fever. He does have history of a liver abscess that has been getting treated by [facility] since October. He does have a PICC line. They have been giving the dosing daily. They did give his dose today. He also has history of liver cancer as well as esophageal cancer is been seen by the cancer center here. They are holding off on chemotherapy until the liver abscesses taking care of. He is nearing chemotherapy treatment at this time so he today he had a port placed in his right chest. Said they are no, medications. He said today at home should have a fever 102 and having pain near the port. Otherwise patient having no other symptoms had no cough no congestion diarrhea constipation nausea vomiting chest pain or shortness of breath headaches or blurry vision or syncope. They said his fever MAXIMUM TEMPERATURE was 103. - Related Data Home Medications Medication Instructions Recorded Confirmed Omeprazole [PriLOSEC] 20 mg PO DAILY 02/05/16 10/25/18 Previous Rx's Medication Instructions Recorded Acetaminophen [Tylenol] 650 mg PO Q6HR PRN tablet 10/26/18 Allergies Allergy/AdvReac Type Severity Reaction Status Date / Time No Known Allergies Allergy Verified 01/03/19 23:27 All systems ED: reviewed and negative except as stated. Review of Systems: As Per HPI Fever PMH - Past Medical History Medical history: Reports: cancer, GERD Psychiatric history: Reports: no psych history - Social History Smoking Status: Never smoker Alcohol use: Reports: occasionally Drug use: Reports: none Physical Exam - General Limitations: no limitations General appearance: alert - Head Head exam: atraumatic, normocephalic, normal inspection - Eye Eye exam: Present: normal appearance, PERRL, EOMI - ENT ENT exam: normal exam, normal oropharynx, mucous membranes moist - Neck Neck exam: Present: normal inspection, full ROM, trachea midline - Chest Chest inspection: Present: normal inspection, symmetric chest wall rise, tenderness (While palpating the right-sided chest with a Port is. No erythema seen no crepitus felt at the site of the port. I will see any signs of infection at this time.) - Respiratory Respiratory exam: Present: normal lung sounds bilaterally - Cardiovascular Cardiovascular exam: Present: regular rate, normal rhythm, normal heart sounds - Abdominal Exam Abdominal exam: Present: soft, Non-Tender, normal bowel sounds. Absent: tenderness, distention, guarding, rebound, rigidity - Extremities Exam Extremities exam: Present: normal inspection, full ROM. Absent: tenderness, pedal edema - Back Exam Back exam: Present: normal inspection, full ROM. Absent: tenderness - Neurological Exam Neurological exam: Present: alert, oriented X3 - Skin Skin exam: Present: warm, dry, intact, normal color Course Course Narrative: We will get blood cultures, CBC BMP lactate chest x-ray we will start patient on Zosyn and vancomycin. We will admit the patient to the hospitalist service as further evaluation will be needed. Vital Signs Temperature 98.9 F 01/03/19 23:27 Pulse Rate 103 01/03/19 23:27 Respiratory Rate 16 01/03/19 23:27 Blood Pressure 153/77 01/03/19 23:27 O2 Sat by Pulse Oximetry 97 01/03/19 23:27 Temperature 98.9 F 01/03/19 23:27 Pulse Rate 103 01/03/19 23:27 Respiratory Rate 16 01/03/19 23:27 Blood Pressure 153/77 01/03/19 23:27 O2 Sat by Pulse Oximetry 97 01/03/19 23:27 Oxygen Delivery Oxygen Delivery Room Air Fever - [facility] Narrative Medical decision making narrative: 58-year-old male presents to the emergency department for fever. Patient has received ceftriaxone for hepatic abscess since October. Said the PICC lines been in since then. Today he had a port placed. Labs came back showing decrease in his hemoglobin where he does receive iron weekly. It is now down to 6.9 he said normally they will transfuse him but he has yet to be needed transfuse but they told him as if it is below 7 to need transfusion. We will give him one unit we did type and screen him. Did give him Zosyn and vancomycin for the possible indwelling catheter infection for possible bacteremia. Patient's okay with being admitted. Patient has been stable here. Has not shown any signs of sepsis, severe sepsis or septic shock. There is no reason to give him the 30 mL/kg bolus of IV fluids at this time as I do not want to fluid overload him. Patient is accepted to the hospitalist. I spoke with Dr. Adams who agreed to admit the patient to their service. Chest X-Ray 01/03/19 23:38 IMPRESSION: No acute finding in the chest. D/ / Kendell Cary MD / Kendell Cary MD Interpreting Provider: Kendell Cary MD - Medical Records Medical records reviewed: Yes I reviewed the patient's medical records. - Lab Data Lab results reviewed: Yes I reviewed the patient's lab results. Result diagrams: 01/04/19 00:22 01/04/19 00:22 Lab Results 01/04/19 01/04/19 01/04/19 Range/Units 00:22 00:22 00:22 WBC 8.1 (4.3-11.1) K/mcL RBC 2.69 L (4.19-5.50) M/mcL Hgb 6.9 L (12.9-16.9) g/dL Hct 22.2 L (37.5-50.1) % MCV 82.5 L (83.0-100.0) fL MCH 25.7 L (28.0-33.3) pg MCHC 31.1 L (31.6-35.5) g/dL RDW 14.9 H (11.5-14.5) % Plt Count 323 (140-400) K/mcL MPV 9.2 L (9.4-12.4) fL Immature Gran % 0.5 (0-4) % Seg Neutrophils % 75.3 % Lymphocytes % 12.0 % Monocytes % 8.9 % Eosinophils % 2.8 % Basophils % 0.5 % Neutrophils # 6.1 (1.6-8.9) K/mcL Lymphocytes # 1.0 (0.6-4.6) K/mcL Monocytes # 0.7 (0.0-1.3) K/mcL Eosinophils # 0.2 (0.0-0.6) K/mcL Basophils # 0.0 (0.0-0.2) K/mcL Sodium 134 L (136-145) mEq/L Potassium 3.7 (3.5-5.1) mEq/L Chloride 102 (98-107) mEq/L Carbon Dioxide 22 L (23-29) mEq/L BUN 15 (6-20) mg/dL Creatinine 0.78 (0.70-1.30) mg/dL Est GFR ( Amer) > 60 (> 60) Est GFR (Non-Af Amer) > 60 (> 60) BUN/Creatinine Ratio 19 (6-26) Glucose 111 H (70-105) mg/dL Calculated Osmolality 280 (280-300) Lactic Acid 0.6 (0.5-2.2) mmol/L Calcium 8.3 L (8.6-10.3) mg/dL Magnesium 1.8 (1.6-2.6) mg/dL - Radiology Data Radiology results reviewed: Yes I reviewed the patient's radiology results. - EKG Data EKG attestation: Yes I reviewed and interpreted this EKG. EKG results narrative: EKG done at 2355 review myself and the attending shows sinus rhythm rate of 88, DC interval 1:30, QRS 87, QTC 49. His no acute ST changes no acute T-wave changes some sinus positive. No hypertrophy, heart strain, heart block. No WPW/Brugada/HOCM. Unchanged based on old EKG done 10/25/18
[2019-01-04] MEDS ORDERED: Piperacillin/Tazobactam 3.375 GM in 0.9 % Sodium Chloride Mini Bag 100 ML IVPB ONE ×2 (00:09→04:00)
[2019-01-04 00:37] LABS: Basophils % 0.5 %; Eosinophils # 0.2 K/mcL (0.0-0.6); Eosinophils % 2.8 %; Hematocrit 22.2 % (37.5-50.1); Hemoglobin 6.9 g/dL (12.9-16.9); Immature Granulocytes % 0.5 % (0-4); Mean Corpuscular HGB Conc 31.1 g/dL (31.6-35.5); Mean Corpuscular Hemoglobin 25.7 pg (28.0-33.3); Mean Corpuscular Volume 82.5 fL (83.0-100.0); Mean Platelet Volume 9.2 fL (9.4-12.4); Monocytes # 0.7 K/mcL (0.0-1.3); Monocytes % 8.9 %; Neutrophils # 6.1 K/mcL (1.6-8.9); Platelet Count 323 K/mcL (140-400); Red Blood Count 2.69 M/mcL (4.19-5.50); Red Cell Distribution Width 14.9 % (11.5-14.5); Segmented Neutrophils % 75.3 %; White Blood Count 8.1 K/mcL (4.3-11.1)
[2019-01-04 00:58] LABS: BUN/Creatinine Ratio 19 (6-26); Blood Urea Nitrogen 15 mg/dL (6-20); Calcium 8.3 mg/dL (8.6-10.3); Carbon Dioxide 22 mEq/L (23-29); Chloride 102 mEq/L (98-107); Glucose 111 mg/dL (70-105); Magnesium 1.8 mg/dL (1.6-2.6); Osmolality,Calculated 280 (280-300); Potassium 3.7 mEq/L (3.5-5.1); Sodium 134 mEq/L (136-145); eGFR For African Americans > 60 (> 60); eGFR For Non-African Americans > 60 (> 60)
[2019-01-04] MEDS ORDERED: 0.9 % Sodium Chloride 1,000 ML IVC ONE (01:04)
--- NOTE | 2019-01-04 01:10 | Emergency Department Note ---
Disposition Clinical Impression: Fever of unknown origin Disposition: Admitted As Inpatient Condition: Fair Time of Disposition: 01:10 General Adult HPI - General Chief complaint: ED Fever Stated complaint: FEVER/PORT/CHEMO Time Seen by Provider: 01/03/19 23:37 Source: patient Mode of arrival: ambulatory Limitations: no limitations - History of Present Illness Pain Scale: 3 - Related Data Home Medications Medication Instructions Recorded Confirmed Omeprazole [PriLOSEC] 20 mg PO DAILY 02/05/16 01/04/19 Previous Rx's Medication Instructions Recorded Acetaminophen [Tylenol] 650 mg PO Q6HR PRN tablet 10/26/18 Allergies Allergy/AdvReac Type Severity Reaction Status Date / Time No Known Allergies Allergy Verified 01/03/19 23:27 Past Medical History - Past Medical History Medical history: Reports: cancer, GERD Psychiatric history: Reports: no psych history - Social History Smoking Status: Never smoker Smokeless Tobacco Status: No Alcohol use: Reports: occasionally Drug use: Reports: none Physical Exam - General Limitations: no limitations General appearance: alert Course Vital Signs Temperature 98.9 F 01/03/19 23:27 Pulse Rate 103 01/03/19 23:27 Respiratory Rate 16 01/03/19 23:27 Blood Pressure 153/77 01/03/19 23:27 O2 Sat by Pulse Oximetry 97 01/03/19 23:27 Temperature 99.8 F H 01/04/19 03:55 Pulse Rate 89 01/04/19 03:55 Respiratory Rate 15 01/04/19 03:55 Blood Pressure 158/71 01/04/19 03:55 O2 Sat by Pulse Oximetry 95 01/04/19 03:55 Oxygen Delivery Oxygen Delivery Room Air Medical Decision Making - Lab Data Result diagrams: 01/04/19 00:22 01/04/19 00:22 Lab Results 01/04/19 01/04/19 01/04/19 Range/Units 00:22 00:22 00:22 WBC 8.1 (4.3-11.1) K/mcL RBC 2.69 L (4.19-5.50) M/mcL Hgb 6.9 L (12.9-16.9) g/dL Hct 22.2 L (37.5-50.1) % MCV 82.5 L (83.0-100.0) fL MCH 25.7 L (28.0-33.3) pg MCHC 31.1 L (31.6-35.5) g/dL RDW 14.9 H (11.5-14.5) % Plt Count 323 (140-400) K/mcL MPV 9.2 L (9.4-12.4) fL Immature Gran % 0.5 (0-4) % Seg Neutrophils % 75.3 % Lymphocytes % 12.0 % Monocytes % 8.9 % Eosinophils % 2.8 % Basophils % 0.5 % Neutrophils # 6.1 (1.6-8.9) K/mcL Lymphocytes # 1.0 (0.6-4.6) K/mcL Monocytes # 0.7 (0.0-1.3) K/mcL Eosinophils # 0.2 (0.0-0.6) K/mcL Basophils # 0.0 (0.0-0.2) K/mcL Sodium 134 L (136-145) mEq/L Potassium 3.7 (3.5-5.1) mEq/L Chloride 102 (98-107) mEq/L Carbon Dioxide 22 L (23-29) mEq/L BUN 15 (6-20) mg/dL Creatinine 0.78 (0.70-1.30) mg/dL Est GFR ( Amer) > 60 (> 60) Est GFR (Non-Af Amer) > 60 (> 60) BUN/Creatinine Ratio 19 (6-26) Glucose 111 H (70-105) mg/dL Calculated Osmolality 280 (280-300) Lactic Acid 0.6 (0.5-2.2) mmol/L Calcium 8.3 L (8.6-10.3) mg/dL Magnesium 1.8 (1.6-2.6) mg/dL Urine Color (Yellow) Urine Clarity (Clear) Urine pH (5.0-8.0) pH Units Ur Specific [place] (1.010-1.025) Urine Protein (Neg-Trace) mg/dL Urine Glucose (UA) (Normal) mg/dL Urine Ketones (Negative) mg/dL Urine Blood (Negative) Urine Nitrite (Negative) Urine Bilirubin (Negative) Urine Urobilinogen (Normal) mg/dL Ur Leukocyte Esterase (Negative) Ur Culture Indicated? (NO) Blood Type Antibody Screen Crossmatch 01/04/19 01/04/19 Range/Units 00:50 01:37 WBC (4.3-11.1) K/mcL RBC (4.19-5.50) M/mcL Hgb (12.9-16.9) g/dL Hct (37.5-50.1) % MCV (83.0-100.0) fL MCH (28.0-33.3) pg MCHC (31.6-35.5) g/dL RDW (11.5-14.5) % Plt Count (140-400) K/mcL MPV (9.4-12.4) fL Immature Gran % (0-4) % Seg Neutrophils % % Lymphocytes % % Monocytes % % Eosinophils % % Basophils % % Neutrophils # (1.6-8.9) K/mcL Lymphocytes # (0.6-4.6) K/mcL Monocytes # (0.0-1.3) K/mcL Eosinophils # (0.0-0.6) K/mcL Basophils # (0.0-0.2) K/mcL Sodium (136-145) mEq/L Potassium (3.5-5.1) mEq/L Chloride (98-107) mEq/L Carbon Dioxide (23-29) mEq/L BUN (6-20) mg/dL Creatinine (0.70-1.30) mg/dL Est GFR ( Amer) (> 60) Est GFR (Non-Af Amer) (> 60) BUN/Creatinine Ratio (6-26) Glucose (70-105) mg/dL Calculated Osmolality (280-300) Lactic Acid (0.5-2.2) mmol/L Calcium (8.6-10.3) mg/dL Magnesium (1.6-2.6) mg/dL Urine Color Yellow (Yellow) Urine Clarity Clear (Clear) Urine pH 6.0 (5.0-8.0) pH Units Ur Specific [place] 1.013 (1.010-1.025) Urine Protein Negative (Neg-Trace) mg/dL Urine Glucose (UA) Normal (Normal) mg/dL Urine Ketones Negative (Negative) mg/dL Urine Blood Negative (Negative) Urine Nitrite Negative (Negative) Urine Bilirubin Negative (Negative) Urine Urobilinogen Normal (Normal) mg/dL Ur Leukocyte Esterase Negative (Negative) Ur Culture Indicated? NO (NO) Blood Type A POSITIVE Antibody Screen NEGATIVE Crossmatch See Detail Attestation Statement - Attestation Attestation: I examined this patient and my medical decision-making was reviewed with the Resident Physician. I agree with the documented findings, disposition and treatment plan as described except to the extent set forth below. Patient is 58-year-old gentleman presents to emergency department with chief complaint of fever. Patient reports that he just had a port placed and has had a low and chronic indwelling PICC line in his right upper extremity worries been receiving IV ceftriaxone for a liver abscess. Patient states that he has metastatic liver and esophageal CA. Exam the patient is awake alert no acute distress the PICC line appears to be in good shape with no evidence of erythema or purulent drainage. The dressing is intact from the port placement. Medical decision management currently the patient is asymptomatic but with the fever and the new indwelling device and also chronic indwelling device patient was given IV antibiotics and blood cultured and the patient will be admitted to the hospitalist service.
[2019-01-04 01:46] LABS: Bilirubin,Urine Negative (Negative); Blood,Urine Negative (Negative); Clarity,Urine Clear (Clear); Color,Urine Yellow (Yellow); Glucose,Urine (UA) Normal (Normal); Ketones,Urine Negative (Negative); Leukocyte Esterase,Urine Negative (Negative); Nitrite,Urine Negative (Negative); Protein,Urine Negative (Neg-Trace); Specific Gravity,Urine 1.013 (1.010-1.025); Urobilinogen,Urine Normal (Normal)
[2019-01-04] MEDS ORDERED: 0.9 % Sodium Chloride 250 ML ONE (03:30)
[2019-01-04] MEDS ORDERED: Isovue-370 500 ML BOTTLE IVP ONE (08:07)
--- NOTE | 2019-01-04 08:09 | Internal Med History&Physical ---
<Kylah Swanson - Last Filed: 01/04/19 12:11> Date of Encounter: 01/04/19 Internal Medicine - H&P: HPI History of present illness: Mr. Castrejon is a 58 year old male Internal Medicine - H&P: Meds Omeprazole [PriLOSEC] 20 mg PO DAILY 02/05/16 [History] cefTRIAXone [Rocephin] 2 gm IVPB DAILY 01/04/19 [History] Allergy/AdvReac Type Severity Reaction Status Date / Time No Known Allergies Allergy Verified 01/03/19 23:27 All Systems PM: A 10-system review of systems was performed and is negative for pertinent findings except as documented above in the HPI. - Constitutional Vitals: Temp Pulse Resp BP Pulse Ox 99.2 F 87 17 158/72 95 01/04/19 06:38 01/04/19 06:38 01/04/19 06:38 01/04/19 06:38 01/04/19 06:38 Internal Med - H&P Results - Labs CBC & Chem 7: 01/04/19 00:22 01/04/19 00:22 Labs: Short CBC 01/04/19 Range/Units 00:22 WBC 8.1 (4.3-11.1) K/mcL Hgb 6.9 L (12.9-16.9) g/dL Hct 22.2 L (37.5-50.1) % Plt Count 323 (140-400) K/mcL Neutrophils # 6.1 (1.6-8.9) K/mcL BMP 01/04/19 00:22 Sodium 134 L Potassium 3.7 Chloride 102 Carbon Dioxide 22 L BUN 15 Creatinine 0.78 Glucose 111 H Calcium 8.3 L Urine 01/04/19 Range/Units 01:37 Urine Color Yellow (Yellow) Urine Clarity Clear (Clear) Urine pH 6.0 (5.0-8.0) pH Units Ur Specific [place] 1.013 (1.010-1.025) Urine Protein Negative (Neg-Trace) mg/dL Urine Glucose (UA) Normal (Normal) mg/dL - Impressions ITS Impressions Chest X-Ray 01/03/19 23:38 IMPRESSION: No acute finding in the chest. D/ / Kendell Cary MD / Kendell Cary MD Interpreting Provider: Kendell Cary MD Abdomen/Pelvis CT 01/04/19 08:07 IMPRESSION: 1. Interval progression of disease with significant interval increase in size of a distal esophageal mass likely primary neoplasm. There has been interval progression of pulmonary metastases, liver metastases as well as gastrohepatic metastatic adenopathy. 2. Dominant segment 8/4 a hepatic lesion seen on prior exams has decreased in size. 3. Cholelithiasis. The findings were sent to the Radiology Results Communication Center at 12:06 pm on 01/04/2019to be communicated to a licensed caregiver. D/ / Valencia Carpenter MD / Valencia Carpenter MD Interpreting Provider: Valencia Carpenter MD - Time Spent With Patient Total time spent is greater than 50% in coordination of care (as documented) at patient's floor/unit and/or counseling patient: - Attending Attestation I examined this patient and my medical decision-making was reviewed with the Resident Physician Dr Bravo. I agree with the documented findings, disposition and treatment plan as described except to the extent set forth be low. Mr Castrejon is being observed for fever awake, pleasant, feeling well currently without fevers or chills. denies n/v/abd pain, no dysuria, diarrhea or wounds. Port placed by IR yesterday. Has had PICC since last [facility] DC. Fatigue improved s/p unit of blood given in ED, denies overt bleeding in setting of known malignancy with esophageal involvement gen- alert, awake,appears stated age cv- reg rate and rhythm, normal s1,s2, no murmurs appreciated lungs- ctabl, normal resp effort on room air abd- soft, non tender, non distended, + bs neuro- AAOx3 Fever, isolated without leukocytosis or other VS instability- rule out infectious process- cxs to be obtained from port, picc and peripherally, empiric IV vanc + zosyn, CT a/p to eval liver abscess revealed cont to decrease in size, will compare to most recent [facility] imaging Acute on Chronic anemia with known esophageal malignancy- s/p prbc, trend hgb Esophageal Adenocarcinoma, 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 Castrejon is a 58 year old male with a past medical history of esophageal adenocarcinoma with possible metastasis to liver, liver abscess. He was recently admitted here and then transferred to [facility] in October. At [facility] he was treated for adenocarcinoma and liver abscess. They placed intrahepatic drain and performed EGD and EUS. He was evaluated by oncology and infectious disease. He was discharged in October and follow outpatient with oncology and infectious disease. He was receiving IV Rocephin through a PICC line for his liver abscess. Oncology determined he was not a surgical candidate and chemotherapy was anticipated once liver abscess had cleared up. Patient is still currently receiving IV Rocephin through his PICC line and is scheduled to follow-up with infectious disease 01/11 where they are anticipated to discontinue his Rocephin. His last CT December 20 demonstrated resolution of his liver abscess. Patient presented to our interventional radiology department yesterday for port placement for chemotherapy which was performed without incident. However yesterday evening the patient return for emergency department with fever and malaise. On evaluation in the emergency department patient was afebrile with vital signs within normal limits. CBC and BMP were significant for mild hyponatremia and anemia. Urinalysis was negative for any acute abnormality. Chest x-ray was negative for any acute process. Due to his very concerning history peripheral venipuncture blood cultures were drawn, vancomycin and Zosyn were initiated, and the patient was admitted to the hospitalist service. On my evaluation the patient confirms the above history. He states that he no longer feels febrile, has minimal pain at his port site, and has no other acute complaints. He denies fever/chills/nausea/vomiting/abdominal pain. Past Med Surg Social Fam HX - Past Medical History Medical history: cancer, GERD Additional medical history: skin Psychiatric history: no psych history - Past Surgical History Additional surgical history: throat surgery - Social History Smoking Status: Never smoker Smokeless Tobacco Status: No Alcohol use: occasionally Drug use: none - Family History Mother Living Status: Still Living Hx Family Cardiac Disorders: Yes (stroke 1979) Father Living Status: Hx Family Cancer: Yes (lung) All Systems PM: A 10-system review of systems was performed and is negative for pertinent findings except as documented above in the HPI. Review of systems: Temp review of systems negative except as otherwise mentioned in history of present illness - Constitutional Vitals: Temp Pulse Resp BP Pulse Ox 99.2 F 87 17 158/72 95 01/04/19 06:38 01/04/19 06:38 01/04/19 06:38 01/04/19 06:38 01/04/19 06:38 Exam: Patient lying comfortably in bed, in no acute distress Alert and oriented 3 Pupils equal and reactive to light, extraocular movements intact Heart in regular rate and rhythm without murmur or gallop auscultated Lungs clear to auscultation bilaterally without adventitious lung sounds noted Abdomen soft and nontender with normal bowel sounds present Normal motor and sensation in all 4 extremities There is a PICC line present in the right upper extremity, and IV present in the left upper extremity, and a subcutaneous port present in the right upper chest that is covered and clean/dry/intact bandage. There is no erythema/induration/drainage present around any of these access points, although the IV and the port are both tender to palpation. Skin warm and dry. Internal Med - H&P Results - Labs CBC & Chem 7: 01/04/19 12:37 01/04/19 00:22 Labs: Short CBC 01/04/19 Range/Units 00:22 WBC 8.1 (4.3-11.1) K/mcL Hgb 6.9 L (12.9-16.9) g/dL Hct 22.2 L (37.5-50.1) % Plt Count 323 (140-400) K/mcL Neutrophils # 6.1 (1.6-8.9) K/mcL BMP 01/04/19 00:22 Sodium 134 L Potassium 3.7 Chloride 102 Carbon Dioxide 22 L BUN 15 Creatinine 0.78 Glucose 111 H Calcium 8.3 L Urine 01/04/19 Range/Units 01:37 Urine Color Yellow (Yellow) Urine Clarity Clear (Clear) Urine pH 6.0 (5.0-8.0) pH Units Ur Specific [place] 1.013 (1.010-1.025) Urine Protein Negative (Neg-Trace) mg/dL Urine Glucose (UA) Normal (Normal) mg/dL - Impressions ITS Impressions Chest X-Ray 01/03/19 23:38 IMPRESSION: No acute finding in the chest. D/ / Kendell Cary MD / Kendell Cary MD Interpreting Provider: Kendell Cary MD - Assessment and Plan (1) Fever Current Visit: Yes Status: Acute Assessment and plan: Patient has recent history of diagnosis of esophageal adenocarcinoma with metast ases, complicated by liver abscess This was evaluated at [facility], where he was deemed not to be a surgical candidate and drain was placed for liver abscess He was discharged mid October to follow up outpatient with infectious disease and hematology/oncology He has been receiving IV Rocephin via infectious disease, with course due to be completed 01/11 at follow-up He had subcutaneous port placed here yesterday via interventional radiology for anticipated chemotherapy He experienced fever last night and due to his current clinical situation reported to the ED for evaluation There was obvious concern for infection, however patient did not meet SIRS criteria, and evaluation was benign except Labs and vitals were negative for any significant abnormality except anemia, chest x-ray was negative, however bacteremia was still considered due to presence of known liver abscess, chronic PICC, and new port placement in the setting of multiple recent hospitalizations The patient was admitted and started on broad-spectrum vancomycin and Zosyn, cultures were drawn peripherally as well as from the PICC and port Repeat CT with contrast of the abdomen and pelvis was obtained to compare liver abscess with previous imaging once obtained from [facility] Once admitted the patient had complete resolution of all symptoms Differential includes bacteremia, exacerbation of liver abscess, oncological fever, infection of vascular access Evaluation is pending, however benign oncological fever is high on the differential Current plan is to assess progress of liver abscess, monitor various cultures, and monitor clinical status while continuing empiric antibiotics If patient continues to be asymptomatic and cultures negative anticipate brief resolution of admission with discharge to home and close follow-up with oncology and infectious disease Qualifiers: Fever type: unspecified Qualified Code(s): R50.9 - Fever, unspecified (2) Esophageal adenocarcinoma Current Visit: Yes Status: Acute Assessment and plan: Patient has known diagnosis of esophageal adenocarcinoma and follows with oncology CT performed here demonstrates known esophageal mass with pulmonary metastases and liver metastases as well as gastrohepatic adenopathy Patient follows with with [facility] who is following the patient here (3) Liver abscess Current Visit: Yes Status: Chronic (4) Anemia Current Visit: Yes Status: Acute Assessment and plan: Patient was noted to have significant anemia on admission with hemoglobin of 6.9 On record review this appears to be acute on chronic, with likely oncological e tiology Patient was transfused 1 unit on admission with interval improvement of hemoglobin We will continue to monitor and transfuse as necessary Qualifiers: Anemia type: other cause Other causes of anemia: chronic disease, neoplastic Qualified Code(s): D63.0 - Anemia in neoplastic disease - Time Spent With Patient Total time spent is greater than 50% in coordination of care (as documented) at patient's floor/unit and/or counseling patient:
[2019-01-04] MEDS ORDERED: Ondansetron 4 MG/2 ML VIAL IVP PRN (08:27)
[2019-01-04] MEDS ORDERED: Naloxone 0.4 MG/ML INJ IVP PRN (08:27)
[2019-01-04] MEDS: 0.9 % Sodium Chloride 1,000 ML IVC SCH ×2 (10:46→21:45)
[2019-01-04 12:49] LABS: Hematocrit 26.9 % (37.5-50.1); Hemoglobin 8.4 g/dL (12.9-16.9)
[2019-01-04 13:11] LABS: % Iron Saturation 16 % (20-55); Iron 55 mcg/dL (65-175); Transferrin 241 mg/dL (203-362)
[2019-01-04 13:28] LABS: Ferritin 98 ng/mL (20-250)
--- NOTE | 2019-01-04 16:11 | Electrocardiograph Report ---
[place] [id number] Test Date: 2019-01-03 Pat Name: Darrel Castrejon Department: EXAM1 Room: [facility] Gender: M Coke Wheeler: : 1960 Requested By: Roby Ziegler Order Number: [id number] Reading MD: Christos Vital Measurements Intervals [place] Rate: 88 P: 40 WI: 130 QRS: 2 QRSD: 87 T: 35 QT: 404 QTc: 489 Interpretive Statements Sinus rhythm Atrial premature complex Borderline prolonged QT interval Electronically Signed On 01-04-2019 16:09:29 EDT by Christos Vital
--- NOTE | 2019-01-04 16:26 | Oncology Inp Consult Note ---
Date of Encounter: 01/04/19 Time of Encounter: 12:00 Assessment and Plan (1) Esophageal adenocarcinoma Status: Acute Assessment and plan: Stage IV- Esophageal cancer with liver metastatic disease, poorly differentiated adenocarcinoma, HER-2/luis manuel negative. QUINN Treatment intent palliative. Liver biopsy showed metastatic disease also strept in culture, status post antibiotics per recommendation at [facility] with repeat CT imaging showing decr in liver lesion. Discussed with infectious diseases earlier at [facility], patient has completed antibiotic course,port placed Fever culture data pending, non-neutropenic, continue current antibiotics, fever trended down, possible transient bacteremia with procedure. If continues to spike fevers will discuss with ID. FOLFOX--to begin in a wk as outpatient-depending on cx No dysphagia/wt loss, he is currently eating Plan d.w attending physician and pt at bedside. Iron profile ordered. Hgb-anemia--s/p PRBC. no gross bleeding - Data of Consult Requesting Physician: Kylah Swanson Primary Care Provider: Sakina Philip CNP - Consult Narrative Reason for consult: Esophageal cancer, fever status post port placement. History of present illness: This a 58-year-old male with medical history significant for skin cancer, esophageal cancer diagnosed in September [address] scan also showed liver lesions consistent with metastatic disease and mass in the lower esophagus, bennie hepatic lymphadenopathy gastrohepatic and paraesophageal lymphadenopathy. He had subsequently had a EGD that showed a fungating mass biopsy showed poorly differentiated adenocarcinoma of the middle and lower third esophagus EUS staging T3 N3, biopsy of the liver was also positive for poorly differentiated adenocarcinoma consistent with metastatic disease. He was subsequently seen at [facility] due to concern for liver abscess was seen by infectious disease for drainage and treatment of culture positive data with IV antibiotics. Patient had almost completed antibiotic course, was continued on Rocephin until his follow-up appointment with infectious diseases in a week. Clearance was obtained for port placement from ID as well as to continue with chemotherapy. Patient had Mediport placed later in the day he was noted to have a fever of 102. He generally did not feel well and presented himself to the ED. Since hospitalization and his temperatures are at 99. Is currently on IV antibiotics. He denies any dysphagia pain in the throat, melena or hematochezia. Hemoglobin has gradually declined to 6.9 status post PRBC of lab values -Hgb at 8.4 g. Past Med Surg Social Fam HX - Past Medical History Medical history: cancer, GERD Additional medical history: skin Psychiatric history: no psych history - Past Surgical History Additional surgical history: throat surgery - Social History Smoking Status: Never smoker Smokeless Tobacco Status: No Alcohol use: occasionally Drug use: none - Family History Mother Living Status: Still Living Hx Family Cardiac Disorders: Yes (stroke 1979) Father Living Status: Hx Family Cancer: Yes (lung) Medications and Allergies Omeprazole [PriLOSEC] 20 mg PO DAILY 02/05/16 [History] cefTRIAXone [Rocephin] 2 gm IVPB DAILY 01/04/19 [History] Allergy/AdvReac Type Severity Reaction Status Date / Time No Known Allergies Allergy Verified 01/03/19 23:27 Constitutional: Present: malaise Additional comments: denies chest pain. Chest soreness from procedure Additional comments: denies SOB or cough Additional comments: no abd pain or robson/hematochezia Additional comments: denies bony aches Additional comments: no sensory, neurological symptoms Additional comments: denies any symptoms Oncology - Exam - Constitutional General appearance: average body habitus, cooperative, no acute distress - Head Head exam: Present: atraumatic, normal inspection - Eye Eye exam: Present: sclera anicteric - ENT ENT exam: Present: mucous membranes moist - Neck Neck exam: Present: full ROM - Cardiovascular Cardiovascular exam: Present: +S1, +S2 - GI/Abdominal GI/Abdominal exam: Present: normal bowel sounds, soft Additional comments: non tender - Extremities Exam Additional comments: no edema or tenderness - Neurological Exam Neurological exam: Present: alert, oriented X3, no focal deficits - Psychiatric Psychiatric exam: Present: normal affect - Skin Skin exam: Present: dry, warm Oncology Inpatient Results Labs: Hgb 6.9 to 8.4g Consult Discharge Plan - Plan Referrals: Sakina Philip, ELEMENTARY READING SPECIALIST [Primary Care Provider] - Inpatient Charges Provider: Dr. Griselda Taylor Consult - Inpatient: [id number]
[2019-01-04] MEDS: Acetaminophen 325 MG TABLET PO PRN (20:08)
[2019-01-04] MEDS: Piperacillin/Tazobactam 3.375 GM in 0.9 % Sodium Chloride Mini Bag 100 ML IVPB SCH (21:46)
[2019-01-05] MEDS: Piperacillin/Tazobactam 3.375 GM in 0.9 % Sodium Chloride Mini Bag 100 ML IVPB SCH ×3 (04:49→22:05)
[2019-01-05 05:18] LABS: Basophils % 0.5 %; Eosinophils # 0.2 K/mcL (0.0-0.6); Hematocrit 23.5 % (37.5-50.1); Hemoglobin 7.4 g/dL (12.9-16.9); Immature Granulocytes % 0.8 % (0-4); Lymphocytes # 1.2 K/mcL (0.6-4.6); Lymphocytes % 13.3 %; Mean Corpuscular HGB Conc 31.5 g/dL (31.6-35.5); Mean Corpuscular Hemoglobin 26.4 pg (28.0-33.3); Mean Corpuscular Volume 83.9 fL (83.0-100.0); Mean Platelet Volume 9.6 fL (9.4-12.4); Monocytes # 0.9 K/mcL (0.0-1.3); Monocytes % 10.1 %; Neutrophils # 6.4 K/mcL (1.6-8.9); Platelet Count 293 K/mcL (140-400); Red Cell Distribution Width 14.7 % (11.5-14.5); Segmented Neutrophils % 73.3 %; White Blood Count 8.7 K/mcL (4.3-11.1)
[2019-01-05 05:36] LABS: BUN/Creatinine Ratio 10 (6-26); Blood Urea Nitrogen 8 mg/dL (6-20); Calcium 8.3 mg/dL (8.6-10.3); Carbon Dioxide 24 mEq/L (23-29); Chloride 101 mEq/L (98-107); Glucose 146 mg/dL (70-105); Osmolality,Calculated 279 (280-300); Potassium 3.7 mEq/L (3.5-5.1); Sodium 134 mEq/L (136-145); eGFR For African Americans > 60 (> 60); eGFR For Non-African Americans > 60 (> 60)
[2019-01-05] MEDS: Acetaminophen 325 MG TABLET PO PRN ×2 (08:33→22:04)
--- NOTE | 2019-01-05 09:06 | Internal Med Progress Note ---
<Rosalio Bravo - Last Filed: 01/05/19 14:40> Hospitalist Progress Note - Encounter Date of Encounter: 01/05/19 Time of Encounter: 09:06 - Subjective Interval History: Overnight, blood cultures were drawn off port and PICC line, however not received by lab. Patient did have recurrent fever last night of 100.4, and relates feeling mildly febrile. Otherwise this morning he has no acute complaints. - Exam Vitals: Temp Pulse Resp BP Pulse Ox 100.4 F H 89 16 114/59 95 01/05/19 07:20 01/05/19 06:45 01/05/19 06:45 01/05/19 06:45 01/05/19 06:45 Exam: Patient lying comfortably in bed, in no acute distress Alert and oriented 3 Pupils equal and reactive to light, extraocular movements intact Heart in regular rate and rhythm without murmur or gallop auscultated Lungs clear to auscultation bilaterally without adventitious lung sounds noted Abdomen soft and nontender with normal bowel sounds present Normal motor and sensation in all 4 extremities There is a PICC line present in the right upper extremity, and IV present in the left upper extremity, and a subcutaneous port present in the right upper chest that is covered and clean/dry/intact bandage. There is no erythema/induration/drainage present around any of these access points, although the IV and the port are both tender to palpation. Skin warm and diaphoretic. - Assessment and Plan (1) Fever Current Visit: Yes Status: Acute Assessment and Plan: Differential includes bacteremia, exacerbation of liver abscess, oncological fever, infection of vascular access, intra-abdominal infection CT scan of the abdomen in comparison to previous showed decreased size of intrahepatic abscess Peripheral venipuncture cultures are pending, port and PICC line cultures will not be drawn at this time Infectious disease is now following the patient, we sincerely appreciate their recommendations ID recommended watching blood cultures and starting micafungin. To cover for intra-abdominal infection. Continue empiric IV vancomycin and Zosyn If patient continues to be asymptomatic and cultures negative anticipate brief resolution of admission with discharge to home and close follow-up with oncology and infectious disease (2) Esophageal adenocarcinoma Current Visit: Yes Status: Acute Assessment and Plan: Patient has known diagnosis of esophageal adenocarcinoma and follows with oncology CT performed here demonstrates known esophageal mass with pulmonary metastases and liver metastases as well as gastrohepatic adenopathy Patient follows with with [facility] who is following the patient here (3) Liver abscess Current Visit: Yes Status: Chronic (4) Anemia Current Visit: Yes Status: Acute Assessment and Plan: Patient was noted to have significant anemia on admission with hemoglobin of 6.9 On record review this appears to be acute on chronic, with likely oncological etiology Patient was transfused 1 unit on admission with interval improvement of hemoglobin Repeat hemoglobin this morning 7.4, 1 unit PRBCs was again transfused, repeat hemoglobin pending We will continue to monitor and transfuse as necessary DVT Prophylaxis: Sequential compression devices - Time Spent with Patient Total time spent is greater than 50% in coordination of care (as documented) at patient's floor/unit and/or counseling patient: Internal Medicine: Result - Labs CBC & Chem 7: 01/05/19 04:45 01/05/19 04:45 Labs: Short CBC 01/04/19 01/05/19 Range/Units 12:37 04:45 WBC 8.7 (4.3-11.1) K/mcL Hgb 8.4 L D 7.4 L (12.9-16.9) g/dL Hct 26.9 L 23.5 L (37.5-50.1) % Plt Count 293 (140-400) K/mcL Neutrophils # 6.4 (1.6-8.9) K/mcL BMP 01/05/19 04:45 Sodium 134 L Potassium 3.7 Chloride 101 Carbon Dioxide 24 BUN 8 Creatinine 0.79 Glucose 146 H Calcium 8.3 L - Impressions Impressions Abdomen/Pelvis CT 01/04/19 08:07 IMPRESSION: 1. Interval progression of disease with significant interval increase in size of a distal esophageal mass likely primary neoplasm. There has been interval progression of pulmonary metastases, liver metastases as well as gastrohepatic metastatic adenopathy. 2. Dominant segment 8/4A hepatic lesion seen on prior exams has decreased in size. 3. Cholelithiasis. The findings were sent to the Radiology Results Communication Center at 12:06 pm on 01/04/2019 to be communicated to a licensed caregiver. D/ / 01/04/2019 12:55:06 Valencia Carpenter MD / edwin Interpreting Provider: Valencia Carpenter MD Consult Discharge Plan - Plan Referrals: Sakina Philip, [employer] [Primary Care Provider] - <Hernan Rdz - Last Filed: 01/05/19 17:33> Hospitalist Progress Note - Encounter Date of Encounter: 01/05/19 - Exam Vitals: Temp Pulse Resp BP Pulse Ox 99.4 F 89 16 131/68 98 01/05/19 17:01 01/05/19 17:01 01/05/19 17:01 01/05/19 17:01 01/05/19 17:01 - Assessment and Plan (1) Fever Current Visit: Yes Status: Acute (2) Esophageal adenocarcinoma Current Visit: Yes Status: Acute (3) Anemia Current Visit: Yes Status: Acute (4) Liver abscess Current Visit: Yes Status: Chronic - Time Spent with Patient Total time spent is greater than 50% in coordination of care (as documented) at patient's floor/unit and/or counseling patient: Internal Medicine: Result - Labs CBC & Chem 7: 01/05/19 04:45 01/05/19 04:45 Labs: Short CBC 01/05/19 Range/Units 04:45 WBC 8.7 (4.3-11.1) K/mcL Hgb 7.4 L (12.9-16.9) g/dL Hct 23.5 L (37.5-50.1) % Plt Count 293 (140-400) K/mcL Neutrophils # 6.4 (1.6-8.9) K/mcL BMP 01/05/19 04:45 Sodium 134 L Potassium 3.7 Chloride 101 Carbon Dioxide 24 BUN 8 Creatinine 0.79 Glucose 146 H Calcium 8.3 L - Attending Attestation I examined this patient and my medical decision-making was reviewed with the Resident Physician on 01/05/19. I agree with the documented findings, disposition and treatment plan as described except to the extent set forth below. Mr Castrejon is currently admitted for fever and concern for further infection. He remains moderate to high risk due to potential for worsening clinical status. Mr Castrejon is waiting for lunch. He feels OK. Slight low grade temp today. No GI issues. No CP or SOB. Exam ALert. Comfortable NC Mucus membranes dry EOMI Neck supple Not tachycardic No wheeze abd soft No edema No rash. Moves all extremities I/P 1. Fever - cultures pending 2. Recent liver abscess 3. Metastatic esophageal cancer. <Rosalio Bravo - Last Filed: 01/05/19 14:40> (1) Fever Qualifiers: Fever type: unspecified Qualified Code(s): R50.9 - Fever, unspecified (4) Anemia Qualifiers: Anemia type: other cause Other causes of anemia: chronic disease, neoplastic Qualified Code(s): D63.0 - Anemia in neoplastic disease <Hernan Rdz - Last Filed: 01/05/19 17:33> (1) Fever Qualifiers: Fever type: due to other condition Qualified Code(s): R50.81 - Fever presenting with conditions classified elsewhere (3) Anemia Qualifiers: Anemia type: other cause Other causes of anemia: chronic disease, neoplastic Qualified Code(s): D63.0 - Anemia in neoplastic disease
--- NOTE | 2019-01-05 09:10 | Internal Med Progress Note ---
Hospitalist Progress Note - Encounter Date of Encounter: 01/05/19 Time of Encounter: 09:10 - Exam Vitals: Temp Pulse Resp BP Pulse Ox 100.4 F H 89 16 114/59 95 01/05/19 07:20 01/05/19 06:45 01/05/19 06:45 01/05/19 06:45 01/05/19 06:45 - Assessment and Plan (1) Fever Current Visit: Yes Status: Acute (2) Esophageal adenocarcinoma Current Visit: Yes Status: Acute (3) Liver abscess Current Visit: Yes Status: Chronic (4) Anemia Current Visit: Yes Status: Acute - Time Spent with Patient Total time spent is greater than 50% in coordination of care (as documented) at patient's floor/unit and/or counseling patient: Internal Medicine: Result - Labs CBC & Chem 7: 01/05/19 04:45 01/05/19 04:45 Labs: Short CBC 01/04/19 01/05/19 Range/Units 12:37 04:45 WBC 8.7 (4.3-11.1) K/mcL Hgb 8.4 L D 7.4 L (12.9-16.9) g/dL Hct 26.9 L 23.5 L (37.5-50.1) % Plt Count 293 (140-400) K/mcL Neutrophils # 6.4 (1.6-8.9) K/mcL BMP 01/05/19 04:45 Sodium 134 L Potassium 3.7 Chloride 101 Carbon Dioxide 24 BUN 8 Creatinine 0.79 Glucose 146 H Calcium 8.3 L - Impressions Impressions Abdomen/Pelvis CT 01/04/19 08:07 IMPRESSION: 1. Interval progression of disease with significant interval increase in size of a distal esophageal mass likely primary neoplasm. There has been interval progression of pulmonary metastases, liver metastases as well as gastrohepatic metastatic adenopathy. 2. Dominant segment 8/4A hepatic lesion seen on prior exams has decreased in size. 3. Cholelithiasis. The findings were sent to the Radiology [facility] at 12:06 pm on 01/04/2019 to be communicated to a licensed caregiver. D/ / 01/04/2019 12:55:06 Valencia Carpenter [facility] Inter[facility] Provider: Valencia Carpenter MD Consult Discharge Plan - Plan Referrals: Sakina Philip, JIGMAKER [Primary Care Provider] - (1) Fever Qualifiers: Fever type: unspecified Qualified Code(s): R50.9 - Fever, unspecified (4) Anemia Qualifiers: Anemia type: other cause Other causes of anemia: chronic disease, neoplastic Qualified Code(s): D63.0 - Anemia in neoplastic disease
[2019-01-05] MEDS ORDERED: 0.9 % Sodium Chloride 250 ML IVC SCH (09:15)
[2019-01-05] MEDS ORDERED: 0.9 % Sodium Chloride 250 ML ONE (12:44)
--- NOTE | 2019-01-05 13:41 | Infectious Disease Consult ---
Infectious Disease-Consult - Encounter Date/Time Date of Encounter: 01/05/19 Time of Encounter: 11:30 - Data of Consult Patient: new to practice Reason for consult: "Patient with hx esophageal adenocarcinoma with mets, not currently undergoing treatment. Has been recieving outpatient IV Rocephin for liver abscess through PICC. Had Port placed 01/03 for chemo, came in evening of 01/03 for fever. Cultures pending, Oncology following. " Consult date: 01/05/19 Requesting Physician: Hernan Rdz DO Primary Care Provider: Sakina Philip CNP - HPI HPI: Mr. Castrejon is a 58-year-old male with a past medical history of liver abscess diagnosed in October currently undergoing treatment with IV Rocephin, esophageal c ancer with metastases to the liver not currently undergoing treatment, and acid reflux. The patient was admitted to the hospital 01/04/19 for fever of unknown origin. We are consulted 01/05/19 for further workup and treatment recommendations for fever. Briefly, the patient is a 58-year-old male with past medical history as stated above. The patient presented to [facility] in September with complaints of fevers and malaise and low back pain. He was diagnosed with UTI and despite adequate treatment did not improve. He had outpatient CT of the chest, abdomen, and pelvis showed a distal esophageal mass concerning for primary esophageal carcinoma with metastatic mass to the liver. The cultures obtained while here grew out trap intermedius 2 out of 2 sets. He was transferred to [facility] where he underwent biopsy. Pathology demonstrated necrotic debris. Given the positive blood cultures at our hospital this was favored from then on to be an abscess. Drain was placed on 11/02/18 was discontinued prior to discharge. Cultures never grew any organisms. [facility] ID was consulted and treated with Zosyn and ceftriaxone during admission and was transitioned to IV ceftriaxone on discharge. He underwent upper endoscopy on 11/03/18 which demonstrated a partially obstructing esophageal tumor in the middle and lower third of the esophagus. Pathology was consistent with adenocarcinoma. He was scheduled to follow up with the [facility] who planned to start palliative chemo (FOLFOX) next week. He saw [facility] ID 11/30/18. Repeat CT showed improvement of the abscess, but not complete resolution. His IV antibiotic course was prolonged an additional 4 weeks with plans to transition to PO Augmentin if repeat CT was improved. Repeat CT 12/17/18 showed continued decrease in the size of the previously described fluid collection within the liver. He had an a-port placed on the day of admission in preparation for the initiation of chemo. That evening, he became febrile and presented to the ER for evaluation. Upon arrival, the patient was afebrile. He was mildly tachycardic, but was otherwise hemodynamically stable. His white blood cell count was normal. Chest x-ray was negative. CT of the abdomen and pelvis showed an increased size of the esophageal mass as well as pulmonary and liver mets and gastrohepatic lymphadenopathy. Blood cultures were obtained 2 sets are pending. He is started empirically on IV vancomycin and Zosyn and was admitted to the hospital for further evaluation. Since admission, the patient has had a MAXIMUM TEMPERATURE of 100.4. His white blood cell count remains normal. Blood cultures are still pending. Currently, he is on vancomycin and Zosyn. We have been asked to evaluate and make further recommendations. During my exam today, the patient states that he was in his usual state of health yesterday. He states after his procedure he felt a little nauseous, but had no other symptoms. He states before he went to bed that night he felt very hot and took his temperature and it was 102. He denies any chills or rigors. Denies any headache or neck pain. Denies any chest pain, shortness of breath, or cough. Denies any URI symptoms. Denies any vomiting or diarrhea and states the nausea has resolved. Denies abdominal pain or urinary complaints. Denies oral thrush or skin rashes. States he has a small superficial abrasion to the anterior aspect of his right lower leg from where he bumped it on a camper step. She is able to eat breakfast this morning. States that the deep port insertion site is tender since it was just put in a couple of days ago. He states the PICC line in his right upper extremity has been working well and he denies any pain or warmth or tenderness at the insertion site. Patient was at home with family. He denies tobacco, alcohol, or illicit drug use. Denies recent travel. Denies any known sick contacts. - ROS Review of Systems: All systems reviewed and no additional remarkable complaints except as stated. - Results CBC & Chem 7: 01/06/19 03:42 01/06/19 03:42 - Exam Vitals: Temp Pulse Resp BP Pulse Ox 98.2 F 84 16 148/71 98 01/05/19 13:26 01/05/19 13:26 01/05/19 13:26 01/05/19 13:26 01/05/19 13:26 Exam: Head: Atraumatic, normal inspection, normocephalic. Eye: EOMI, PERRLA, no scleral icterus noted. ENT: Mucous membranes moist. No odontogenic infection noted. Neck: Normal inspection, no meningismus. Respiratory: Clear to auscultation. No rales, respiratory distress, rhonchi, or wheezes noted. Cardiovascular: Regular rate and rhythm, S1 and S2 audible. No murmurs, rubs, or gallops. GI: Soft, nondistended, normal bowel sounds. Nontender. Extremities:No joint swelling, pedal edema, or tenderness noted. PICC line not ed to the right upper extremity with transparent dressing clean, dry, and intact. No surrounding erythema, warmth, tenderness, or drainage. Back: Normal inspection. No vertebral tenderness noted. Neurological: Alert, oriented 3, no focal deficits. Psychiatric: normal affect, normal mood. Skin: Dry, intact, warm. Normal color. No rashes. Additional findings: A port site noted to the right upper chest with mild erythema. Not warm to touch. No drainage. Mild tenderness to palpation. Omeprazole [PriLOSEC] 20 mg PO DAILY 02/05/16 [History] cefTRIAXone [Rocephin] 2 gm IVPB DAILY 01/04/19 [History] Allergy/AdvReac Type Severity Reaction Status Date / Time No Known Allergies Allergy Verified 01/03/19 23:27 - Assessment and Plan (1) Fever Current Visit: Yes Status: Acute Etiology: Unclear. Bacteremia versus malignancy vs. intra-abdominal vs. other. MAXIMUM TEMPERATURE 102. No other sepsis criteria. Peripheral blood cultures drawn 01/04/19 are pending x 2 sets. Unable to get blood cultures from the PICC line, but clinically it does not appe ar infected. Blood cultures drawn from the a-port, but they have been lost. Clinically, the a-port site does not appear infected. Currently on Vanc and Zosyn. Qualifiers: Qualified Code(s): R50.81 - Fever presenting with conditions classified elsewhere SNOMED Code(s): 412956661 (2) Esophageal adenocarcinoma Current Visit: Yes Status: Acute Diagnosed September 2018. Follows with the [facility]. Mets to the liver. Palliative chemo planned for next week (FOLFOX). SNOMED Code(s): 827529810 (3) Liver abscess Current Visit: Yes Status: Chronic Diagnosed at [facility] 10/2018. Causative organism: S. intermedius based on blood culture results. Patient states they told him it may have come from his teeth which they pulled at [facility]. Status post biopsy/drain placement 11/02/18. Cultures were negative, but due to the bacteremia, treated with Rocephin. Repeat CT 11/30/[address] 12/17/18 showed further improvement. Scheduled to see [facility] ID 01/11/19 to discuss transitioning to PO Augmentin. SNOMED Code(s): 76550711 (4) GERD (gastroesophageal reflux disease) Current Visit: No Status: Chronic Qualifiers: Qualified Code(s): K21.9 - Gastro-esophageal reflux disease without esophagitis SNOMED Code(s): 433382357 - Recommendations Recommendations: At this point, etiology of fevers unclear. Given the acute-onset of fevers post- procedure, not sure if the patient developed a transient bacteremia. He does have a known history of esophageal adenocarcinoma which certainly puts intra- abdominal infection on the differential. Await blood cultures to finalize. Continue Vancomycin IV. Pharmacy to dose. Goal trough ~15. Continue Zosyn 3.375 grams IV Q8H. Start micafungin 100mg IV daily. Duration of treatment depends on the clinical picture. Monitor renal function and for drug toxicity and dose-adjust antibiotics. Past Med Surg Social Fam HX - Past Medical History Attestation: Yes The following information was validated with the patient. Source: patient, old records reviewed, nursing notes reviewed Medical history: cancer, GERD Additional medical history: skin Psychiatric history: no psych history - Past Surgical History Additional surgical history: throat surgery - Social History Smoking Status: Never smoker Smokeless Tobacco Status: No Alcohol use: occasionally Drug use: none - Family History Mother Living Status: Still Living Hx Family Cardiac Disorders: Yes (stroke 1979) Father Living Status: Hx Family Cancer: Yes (lung) Consult Discharge Plan - Plan Referrals: Sakina Philip, HAND STITCHER [Primary Care Provider] - - Attending Attestation I have personally performed a face to face evaluation on this patient. I have reviewed and agree with the care plan. This is an addendum to original report dictated by Jasmyn Avitia CNP. Please refer to Jasmyn's note for full detail. Agree with above history of present illness, review of system and physical exam findings. Assessment and plan: Feveretiology not clear. Infectious versus malignancy versus other. Fevers started a few hours of placing the port. Esophageal adenocarcinoma stage IV Liver abscess causative organism Streptococcus intermedius status post biopsy and drained 11/02/2018 was on Rocephin with plan to treat through 01/11/2019 t hen transition to by mouth Augmentin Recommendations: At this point patient's review of systems unremarkable and physical exam does not suggest any infectious source at this point. Patient actually feels great does not appear toxic. I am not sure if he had transient bacteremia post port placement or the liver abscess is worse or there is a different organism including Katelynn since he has compromised bowel lumen integrity Agree with vancomycin and Zosyn for now. We will add micafungin. Await cultures to finalize. Goal vancomycin trough around 10. Monitor labs and for drug toxicity.
--- NOTE | 2019-01-05 17:01 | Oncology Inp Progress Note ---
Date of Encounter: 01/05/19 Time of Encounter: 12:00 (1) Esophageal adenocarcinoma Current Visit: Yes Status: Acute Assessment and plan: Stage IV- Esophageal cancer with liver metastatic disease, poorly differentiated adenocarcinoma, HER-2/luis manuel negative. QUINN Treatment intent palliative. Liver biopsy showed metastatic disease also strept in culture, status post antibiotics per recommendation at [facility] with repeat CT imaging showing decr in liver lesion. Fever culture data pending, non-neutropenic, continue current antibioticsID input appreciated. Clinically he does not look toxic. Changes in Ct imaging suggestive of progression of metastatic disease. Discussed Rx after discharge Receiving PRBC today Plan d.w pt at bedside. Oncology: Subj Interval history: Patient feels much improved today. He denies any chest pain or abdominal pain. He had some nausea with meals yesterday. - Constitutional General appearance: no acute distress - Head Head exam: Present: atraumatic, normal inspection - Eye Eye exam: Present: sclera anicteric - ENT ENT exam: Present: mucous membranes moist - Respiratory Respiratory exam: Present: CTAB - Cardiovascular Cardiovascular exam: Present: +S1, +S2 - GI/Abdominal GI/Abdominal exam: Present: normal bowel sounds, soft - Extremities Exam Extremities exam: Present: full ROM - Neurological Exam Neurological exam: Present: alert, CN II-XII intact, oriented X3, no focal deficits Oncology: Obj Data - Labs CBC & Chem 7: 01/05/19 04:45 01/05/19 04:45 Consult Discharge Plan - Plan Referrals: Sakina Philip, SCIENTIFIC RECRUITER [Primary Care Provider] - Inpatient Charges Provider: Dr. Griselda Taylor Follow up - Inpatient: [id number]
[2019-01-05] MEDS: Micafungin 100 MG in 0.9 % Sodium Chloride Mini Bag 100 ML IVPB SCH (17:11)
[2019-01-05 18:54] LABS: Hematocrit 26.3 % (37.5-50.1); Hemoglobin 8.4 g/dL (12.9-16.9)
[2019-01-05] MEDS: 0.9 % Sodium Chloride 1,000 ML IVC SCH (22:05)
[2019-01-06 03:52] LABS: Basophils % 0.4 %; Eosinophils # 0.2 K/mcL (0.0-0.6); Eosinophils % 1.4 %; Hemoglobin 8.9 g/dL (12.9-16.9); Immature Granulocytes % 0.8 % (0-4); Lymphocytes # 1.7 K/mcL (0.6-4.6); Lymphocytes % 15.9 %; Mean Corpuscular HGB Conc 31.8 g/dL (31.6-35.5); Mean Corpuscular Hemoglobin 27.1 pg (28.0-33.3); Mean Corpuscular Volume 85.1 fL (83.0-100.0); Mean Platelet Volume 9.6 fL (9.4-12.4); Monocytes % 9.7 %; Neutrophils # 7.4 K/mcL (1.6-8.9); Platelet Count 295 K/mcL (140-400); Red Blood Count 3.29 M/mcL (4.19-5.50); Red Cell Distribution Width 14.9 % (11.5-14.5); Segmented Neutrophils % 71.8 %; White Blood Count 10.4 K/mcL (4.3-11.1)
[2019-01-06 04:12] LABS: BUN/Creatinine Ratio 9 (6-26); Blood Urea Nitrogen 8 mg/dL (6-20); Calcium 8.3 mg/dL (8.6-10.3); Carbon Dioxide 24 mEq/L (23-29); Chloride 103 mEq/L (98-107); Glucose 105 mg/dL (70-105); Osmolality,Calculated 281 (280-300); Potassium 3.8 mEq/L (3.5-5.1); Sodium 136 mEq/L (136-145); eGFR For African Americans > 60 (> 60); eGFR For Non-African Americans > 60 (> 60)
[2019-01-06] MEDS: Acetaminophen 325 MG TABLET PO PRN ×2 (04:42→17:32)
[2019-01-06] MEDS: Piperacillin/Tazobactam 3.375 GM in 0.9 % Sodium Chloride Mini Bag 100 ML IVPB SCH ×3 (04:44→20:31)
--- NOTE | 2019-01-06 08:09 | Discharge Summary ---
Orders not resulted at time of discharge: Pending orders 01/03/19 23:38 Culture,Blood [BC] Stat Date of Encounter: 01/06/19 Time of Encounter: 08:09 Hospital course: Mr. Castrejon is a 58 year old male - Time Spent with Patient Total time spent providing and/or coordinating discharge services: - Discharge Medications Prescriptions: No Action Omeprazole [PriLOSEC] 20 mg PO DAILY cefTRIAXone [Rocephin] 2 gm IVPB DAILY Home Medications: Omeprazole [PriLOSEC] 20 mg PO DAILY 02/05/16 [History] cefTRIAXone [Rocephin] 2 gm IVPB DAILY 01/04/19 [History] Allergies/Adverse Reactions: Allergy/AdvReac Type Severity Reaction Status Date / Time No Known Allergies Allergy Verified 01/03/19 23:27 Date of admission: 01/04/19 02:20 Primary care physician: Sakina Philip CNP Consults: 01/04/19 03:13 Consult to Luster Repairer [CONS] Routine Reason for SW Consult: picc line, port 01/04/19 13:37 Consult to Oncology Hematology [CONS] Routine Consulting Provider: Abigail Taylor Reason for Consult: anemia, fever in setting of adenocarcinoma of esophagus Call Completed: Yes 01/05/19 09:06 Consult to Infectious Diseases [CONS] Routine Consulting Provider: Infectious Disease Marita Reason for Consult: Patient with hx esophageal adenocarcinoma with mets, not currently undergoing treatment. Has been recieving outpatient IV Rocephin for liver abscess through PICC. Had Port placed 01/03 for chemo, came in evening of 01/03 for fever. Cultures pending, Oncology following. Time Notified: 09:09 Call Completed: Yes - Constitutional Vitals: Temp Pulse Resp BP Pulse Ox 99.2 F 73 18 120/65 96 01/06/19 06:33 01/06/19 06:33 01/06/19 06:33 01/06/19 06:33 01/06/19 06:33 - Patient Status Condition: Fair - Discharge Instructions Follow Up With: Sakina Philip CNP [Primary Care Provider] -
[2019-01-06] MEDS: Micafungin 100 MG in 0.9 % Sodium Chloride Mini Bag 100 ML IVPB SCH (08:46)
--- NOTE | 2019-01-06 10:42 | Infectious Disease Progress No ---
ID Progress Note Date of Encounter: 01/06/19 Time of Encounter: 10:00 - Subjective Subjective: Patient seen and examined. No acute events noted overnight. Patient states overall he feels well. Had a low-grade temp of 100.8 overnight, but denies any chills or rigors. Denies headache or neck pain. Denies chest pain, shortness breath, or cough. Denies nausea, vomiting, diarrhea, or constipation. Reports last bowel movement was yesterday. States his appetite is good. Reports some mild right upper quadrant abdominal discomfort after breakfast this morning that has resolved. Denies oral thrush or skin rashes. Denies urinary complaints. Denies any URI symptoms. - Objective CBC & Chem 7: 01/06/19 03:42 01/06/19 03:42 - Exam Vitals: Temp Pulse Resp BP Pulse Ox 99.2 F 73 18 120/65 96 01/06/19 06:33 01/06/19 06:33 01/06/19 06:33 01/06/19 06:33 01/06/19 06:33 Exam: Head: Atraumatic, normal inspection, normocephalic. Eye: EOMI, PERRLA, no scleral icterus noted. ENT: Mucous membranes moist. No odontogenic infection noted. Neck: Normal inspection, no meningismus. Respiratory: Clear to auscultation. No rales, respiratory distress, rhonchi, or wheezes noted. Cardiovascular: Regular rate and rhythm, S1 and S2 audible. No murmurs, rubs, or gallops. GI: Soft, nondistended, normal bowel sounds. Mild tenderness noted to the right upper quadrant. Extremities:No joint swelling, pedal edema, or tenderness noted. PICC line noted to the right upper extremity with transparent dressing clean, dry, and intact. No surrounding erythema, warmth, tenderness, or drainage. Back: Normal inspection. No vertebral tenderness noted. Neurological: Alert, oriented 3, no focal deficits. Psychiatric: normal affect, normal mood. Skin: Dry, intact, warm. Normal color. No rashes. Additional findings: A port site noted to the right upper chest with mild erythema. Not warm to touch. No drainage. Mild tenderness to palpation. - Assessment and Plan (1) Fever Status: Acute Etiology: Unclear. Bacteremia versus malignancy vs. intra-abdominal vs. other. MAXIMUM TEMPERATURE 100.8 overnight. No other sepsis criteria. Peripheral blood cultures drawn 01/04/19 are pending x 2 sets. Unable to get blood cultures from the PICC line, but clinically it does not a ppear infected. Blood cultures drawn from the a-port, but they have been lost. Clinically, the a-port site does not appear infected. Currently on Vanc and Zosyn and micafungin. Qualifiers: Fever type: due to other condition Qualified Code(s): R50.81 - Fever presenting with conditions classified elsewhere SNOMED Code(s): 354425447 (2) Esophageal adenocarcinoma Status: Chronic Diagnosed September 2018. Follows with the [facility]. Mets to the liver. Hematology/oncology consulted. Palliative chemo planned for next week (FOLFOX). SNOMED Code(s): 072396655 (3) Liver abscess Status: Chronic Diagnosed at [facility] 10/2018. Causative organism: S. intermedius based on blood culture results. Patient states they told him it may have come from his teeth which they pulled at [facility]. Status post biopsy/drain placement 11/02/18. Cultures were negative, but due to the bacteremia, treated with Rocephin. Repeat CT 11/30/[address] 12/17/18 showed further improvement. Scheduled to see [facility] ID 01/11/19 to discuss transitioning to PO Augmentin. SNOMED Code(s): 23464978 (4) GERD (gastroesophageal reflux disease) Status: Chronic Qualifiers: Esophagitis presence: esophagitis presence not specified Qualified Code(s): K21.9 - Gastro-esophageal reflux disease without esophagitis SNOMED Code(s): 299785244 - Recommendations Recommendations: At this point, etiology of fevers unclear. Given the acute-onset of fevers post- procedure, not sure if the patient developed a transient bacteremia. He does hav e a known history of esophageal adenocarcinoma which certainly puts intra- abdominal infection on the differential. Additionally, malignancy could be the cause of the patient's fevers. Check pro-calcitonin. Await blood cultures to finalize. Continue Vancomycin IV. Pharmacy to dose. Goal trough ~15. Continue Zosyn 3.375 grams IV Q8H. Continue micafungin 100mg IV daily. Duration of treatment depends on the clinical picture. Monitor renal function and for drug toxicity and dose-adjust antibiotics. Consult Discharge Plan - Plan Instructions: Sepsis (DC), Anemia (GEN) Additional Instructions: Follow-up appointments: If there is not an appointment listed below, please call your physician and schedule a follow-up appointment. If you have congestive heart failure and your symptoms return, make an appointment with your physician. Medication List: Carry an up to date list of medications you are taking at all time. We have given you an updated medication list including any new medications that you have been prescribed. Please provide that list to your primary provider Symptoms: If your condition changes or you experience any of the following symptoms, notify your physician immediately: Unusual or worsening pain, fever, persistent nausea and vomiting, bleeding, increase in swelling (especially in your legs), sudden weight gain, extreme dizz iness, chest pain, increased drainage or redness from a wound or incision. Go to the emergency department if you experience a problem with breathing. Weights: If you have a history of swelling or shortness of breath, weigh yourself daily and notify your physician if you have a weight gain of two or more pounds in one day or 5 or more pounds in a week. If you experience any of the warning signs for stroke: Sudden numbness or weakness of the face, arm or leg; especially on one side of the body, sudden confusion, trouble speaking or understanding, sudden trouble seeing in one or both eyes, sudden trouble walking, dizziness, loss of balance or coordination, sudden sever headache with no cause; Call 911 or go to the emergency room. Stroke is a medical emergency. Some risk factors for stroke: Age, cigarette smoking, diabetes, excessive alcohol consumption, family history, high blood pressure, overweight, physical inactivity, prior stroke, heart attack, diagnosis of carotid artery stenosis or other artery disease. If you smoke, STOP: Smoking or tobacco use significantly increases your risk of heart and lung disease. Your chance of disease greatly increases if you continue to smoke. For more information, call the [place] tobacco quit line for smoking cessation 2-372-BHQA-NOW ( ) Referrals: Sakina Philip, DRYWALL MECHANIC [Primary Care Provider] - (pt reports that him and his PCP Sakina Philip discussed that oncology doctors would be managing his apppointments ) Prescriptions: Fluconazole [Diflucan] 200 mg PO DAILY #14 tab Transmission Status: Received by [facility] - Attending Attestation I have personally performed a face to face evaluation on this patient. I have reviewed and agree with the care plan. History and Exam by me shows: Assessment and plan: 1.Feveretiology not clear. Infectious versus malignancy versus other. Fevers started a few hours of placing the port. 2.Esophageal adenocarcinoma stage IV 3.Liver abscess causative organism Streptococcus intermedius status post biopsy and drained 11/02/2018 was on Rocephin with plan to treat through 01/11/2019 then transition to by mouth Augmentin Recommendations: At this point, etiology of fevers unclear. Given the acute-onset of fevers post- procedure, not sure if the patient developed a transient bacteremia. He does have a known history of esophageal adenocarcinoma which certainly puts intra-ab dominal infection on the differential. Additionally, malignancy could be the cause of the patient's fevers. Check pro-calcitonin. Await blood cultures to finalize. Continue Vancomycin IV. Pharmacy to dose. Goal trough ~15. Continue Zosyn 3.375 grams IV Q8H. Continue micafungin 100mg IV daily. Duration of treatment depends on the clinical picture. Monitor renal function and for drug toxicity and dose-adjust antibiotics.
--- NOTE | 2019-01-06 11:04 | Internal Med Progress Note ---
<HaydeDevon M - Last Filed: 01/06/19 12:44> Hospitalist Progress Note - Encounter Date of Encounter: 01/06/19 Time of Encounter: 10:59 - Subjective Interval History: Patient is awake, alert, sitting in bed comfortably. No acute events overnight. He is eating without significant dysphagia. Denies abdominal pain. Feels well ov erall, denies fever, chills, nausea, vomiting. Had a mild fever of 100.8 last night. No changes to bowel/bladder habits. - Exam Vitals: Temp Pulse Resp BP Pulse Ox 99.2 F 73 18 120/65 96 01/06/19 06:33 01/06/19 06:33 01/06/19 06:33 01/06/19 06:33 01/06/19 06:33 Exam: GA: A&Ox3, in no acute distress Eyes: Pupils equal and reactive to light, extraocular movements intact CV: RRR, S1/S2 WNL. No murmurs, rubs, gallops. Lungs: Lungs clear to auscultation bilaterally. No wheezes, rales, rhonchi. GI: Abdomen soft and nontender with normal bowel sounds present Skin/Chest:There is a PICC line present in the right upper extremity, and IV present in the left upper extremity, and a subcutaneous port present in the right upper chest that is covered and clean/dry/intact bandage. There is no erythema/induration/drainage present. Neuro: No focal deficits, CN grossly intact. - Assessment and Plan (1) Fever Current Visit: Yes Status: Acute Assessment and Plan: Etiology still unclear at this time. Differential includes bacteremia, exacerbation of liver abscess, oncological fever, infection of vascular access, intra-abdominal infection. - Peripheral venipuncture cultures are pending. - Infectious disease following. Recommends awaiting blood cultures. - Continue Micafungin, Vanc, Zosyn IV. - Procalcitonin. - Awaiting blood cultures. Intent to discharge if negative. (2) Esophageal adenocarcinoma Current Visit: Yes Status: Acute Assessment and Plan: Stage IV esophageal CA w/liver mets. Hematology and oncology consulted. Appreciate there assistance. - Continue IV abx's per ID. - Discussed management at discharge, treatment intent palliative. - CT suggestive of metastatic progression. (3) Liver abscess Current Visit: Yes Status: Chronic Assessment and Plan: Patient was diagnosed at [facility] on 10/2018. S/P biopsy/drain placement. Repeat CT 12/17/18 showed improvement. - Scheduled to see [facility] ID 01/11/19. - Continue to monitor. (4) Anemia Current Visit: Yes Status: Acute Assessment and Plan: Pt with Hbg of 8.9 increased from 8.4 s/p PRBC transfusion. No evidence of bleedingLikely related to metastatic disease. - Heme/Onc consulted. Recs rx at discharge. - Continue to monitor status with daily CBC. (5) GERD (gastroesophageal reflux disease) Current Visit: No Status: Chronic Assessment and Plan: Patient reports some GERD. Relatively unchanged from yesterday. Appetitie is good, no dysphagia. - Continue Prilosec. DVT Prophylaxis: Sequential compression devices - Time Spent with Patient Total time spent is greater than 50% in coordination of care (as documented) at patient's floor/unit and/or counseling patient: Plan of Care Discussed with: patient Internal Medicine: Result - Labs CBC & Chem 7: 01/06/19 03:42 01/06/19 03:42 Labs: Short CBC 01/05/19 01/06/19 Range/Units 18:41 03:42 WBC 10.4 (4.3-11.1) K/mcL Hgb 8.4 L 8.9 L (12.9-16.9) g/dL Hct 26.3 L 28.0 L (37.5-50.1) % Plt Count 295 (140-400) K/mcL Neutrophils # 7.4 (1.6-8.9) K/mcL BMP 01/06/19 03:42 Sodium 136 Potassium 3.8 Chloride 103 Carbon Dioxide 24 BUN 8 Creatinine 0.90 Glucose 105 Calcium 8.3 L Consult Discharge Plan - Plan Referrals: Sakina Philip, RECEPTION SPECIALIST [Primary Care Provider] - <Hernan Rdz - Last Filed: 01/06/19 17:38> Hospitalist Progress Note - Encounter Date of Encounter: 01/06/19 - Exam Vitals: Temp Pulse Resp BP Pulse Ox 100.1 F H 107 18 147/82 99 01/06/19 16:00 01/06/19 16:00 01/06/19 16:00 01/06/19 16:00 01/06/19 16:00 - Assessment and Plan (1) Fever Current Visit: Yes Status: Acute (2) Esophageal adenocarcinoma Current Visit: Yes Status: Acute (3) Anemia Current Visit: Yes Status: Acute (4) Liver abscess Current Visit: Yes Status: Chronic - Time Spent with Patient Total time spent is greater than 50% in coordination of care (as documented) at patient's floor/unit and/or counseling patient: Internal Medicine: Result - Labs CBC & Chem 7: 01/06/19 03:42 01/06/19 03:42 Labs: Short CBC 01/05/19 01/06/19 Range/Units 18:41 03:42 WBC 10.4 (4.3-11.1) K/mcL Hgb 8.4 L 8.9 L (12.9-16.9) g/dL Hct 26.3 L 28.0 L (37.5-50.1) % Plt Count 295 (140-400) K/mcL Neutrophils # 7.4 (1.6-8.9) K/mcL BMP 01/06/19 03:42 Sodium 136 Potassium 3.8 Chloride 103 Carbon Dioxide 24 BUN 8 Creatinine 0.90 Glucose 105 Calcium 8.3 L - Attending Attestation I examined this patient and my medical decision-making was reviewed with the Resident Physician on 01/06/19. I agree with the documented findings, disposition and treatment plan as described except to the extent set forth below. Mr Castrejon is currently admitted for persistent fever and hx liver abscess. He remains moderate to high risk due to potential for worsening clinical status. Mr Castrejon is feeling OK. No fever today but 100.8 last night. Otherwise feels OK. Exam: Alert. Comfortable NC Mucus membranes dry. Neck supple Heart not tachy no wheeze Abd soft. No edema Moves all extremities. No rash. Plan: IV abx per ID. Cultures pending. <Devon Lock - Last Filed: 01/06/19 12:44> (1) Fever Qualifiers: Fever type: due to other condition Qualified Code(s): R50.81 - Fever presenting with conditions classified elsewhere (4) Anemia Qualifiers: Anemia type: other cause Other causes of anemia: chronic disease, neoplastic Qualified Code(s): D63.0 - Anemia in neoplastic disease (5) GERD (gastroesophageal reflux disease) Qualifiers: Esophagitis presence: esophagitis presence not specified Qualified Code(s): K21.9 - Gastro-esophageal reflux disease without esophagitis <Hernan Rdz - Last Filed: 01/06/19 17:38> (1) Fever Qualifiers: Fever type: due to other condition Qualified Code(s): R50.81 - Fever presenting with conditions classified elsewhere (3) Anemia Qualifiers: Anemia type: other cause Other causes of anemia: chronic disease, neoplastic Qualified Code(s): D63.0 - Anemia in neoplastic disease
[2019-01-07] MEDS: Piperacillin/Tazobactam 3.375 GM in 0.9 % Sodium Chloride Mini Bag 100 ML IVPB SCH ×2 (03:58→14:25)
[2019-01-07] MEDS ORDERED: Micafungin 100 MG in 0.9 % Sodium Chloride Mini Bag 100 ML IVPB SCH (09:15)
--- NOTE | 2019-01-07 11:47 | Infectious Disease Progress No ---
ID Progress Note Date of Encounter: 01/07/19 Time of Encounter: 11:46 - Subjective Subjective: Patient seen and examined. No acute events noted overnight. Patient states overall he feels well. Had a low-grade temp of 100.1 overnight, but denies any chills or rigors. Denies headache or neck pain. Denies chest pain, shortness breath, or cough. Denies nausea, vomiting, diarrhea, or constipation. Reports last bowel movement was yesterday. States his appetite is good. Denies abdominal pain. Denies oral thrush or skin rashes. Denies urinary complaints. Denies any URI symptoms. - Objective CBC & Chem 7: 01/06/19 03:42 01/06/19 03:42 - Exam Vitals: Temp Pulse Resp BP Pulse Ox 99.9 F H 82 16 127/67 98 01/07/19 07:25 01/07/19 07:25 01/07/19 07:25 01/07/19 07:25 01/07/19 07:25 Exam: Head: Atraumatic, normal inspection, normocephalic. Eye: EOMI, PERRLA, no scleral icterus noted. ENT: Mucous membranes moist. No odontogenic infection noted. Neck: Normal inspection, no meningismus. Respiratory: Clear to auscultation. No rales, respiratory distress, rhonchi, or wheezes noted. Cardiovascular: Regular rate and rhythm, S1 and S2 audible. No murmurs, rubs, or gallops. GI: Soft, nondistended, normal bowel sounds. Mild tenderness noted to the right upper quadrant. Extremities:No joint swelling, pedal edema, or tenderness noted. PICC line noted to the right upper extremity with transparent dressing clean, dry, and intact. No surrounding erythema, warmth, tenderness, or drainage. Back: Normal inspection. No vertebral tenderness noted. Neurological: Alert, oriented 3, no focal deficits. Psychiatric: normal affect, normal mood. Skin: Dry, intact, warm. Normal color. No rashes. Additional findings: A port site noted to the right upper chest with mild erythema. Not warm to touch. No drainage. Non-tender - Assessment and Plan (1) Fever Status: Acute Etiology: Unclear. Bacteremia versus malignancy vs. intra-abdominal vs. other. MAXIMUM TEMPERATURE 100.1 overnight. No other sepsis criteria. Peripheral blood cultures drawn 01/04/19 are pending x 2 sets. Unable to get blood cultures from the PICC line, but clinically it does not appear infected. Blood cultures drawn from the a-port, but they have been lost. Clinically, the a-port site does not appear infected. Procalcitonin 0.22. Currently on Vanc and Zosyn and micafungin. Qualifiers: Fever type: due to other condition Qualified Code(s): R50.81 - Fever presenting with conditions classified elsewhere SNOMED Code(s): 863770314 (2) Esophageal adenocarcinoma Status: Chronic Diagnosed September 2018. Follows with the [facility]. Mets to the liver. Hematology/oncology consulted. Palliative chemo planned for next week (FOLFOX SNOMED Code(s): 715321291 (3) Liver abscess Status: Chronic Diagnosed at [facility] 10/2018. Causative organism: S. intermedius based on blood culture results. Patient states they told him it may have come from his teeth which they pulled at [facility]. Status post biopsy/drain placement 11/02/18. Cultures were negative, but due to the bacteremia, treated with Rocephin. Repeat CT 11/30/[address] 12/17/18 showed further improvement. Scheduled to see [facility] ID 01/11/19 to discuss transitioning to PO Augmentin. SNOMED Code(s): 37470798 (4) GERD (gastroesophageal reflux disease) Status: Chronic Qualifiers: Esophagitis presence: esophagitis presence not specified Qualified Code(s): K21.9 - Gastro-esophageal reflux disease without esophagitis SNOMED Code(s): 414692275 - Recommendations Recommendations: At this point, etiology of fevers unclear. Given the acute-onset of fevers post- procedure, not sure if the patient developed a transient bacteremia. He does have a known history of esophageal adenocarcinoma which certainly puts intra- abdominal infection on the differential. Additionally, malignancy could be the cause of the patient's fevers. The patient is insistent on going home although we are still not exactly sure what is going on. Await blood cultures to finalize. Discontinue micafungin. Start fluconazole 400mg IV x 1 dose now. Continue Vancomycin IV. Pharmacy to dose. Goal trough ~15. Continue cefepime 2 grams IV Q12H. Duration of treatment depends on the clinical picture. Can resume Rocephin as previously prescribed on discharge with the addition of fluconazole 200mg PO daily to complete a total of 14 days of treatment. Monitor renal function and for drug toxicity and dose-adjust antibiotics. Consult Discharge Plan - Plan Instructions: Sepsis (DC), Anemia (GEN) Additional Instructions: Follow-up appointments: If there is not an appointment listed below, please call your physician and schedule a follow-up appointment. If you have congestive heart failure and your symptoms return, make an appointment with your physician. Medication List: Carry an up to date list of medications you are taking at all time. We have given you an updated medication list including any new medications that you have been prescribed. Please provide that list to your primary provider Symptoms: If your condition changes or you experience any of the following symptoms, notify your physician immediately: Unusual or worsening pain, fever, persistent nausea and vomiting, bleeding, increase in swelling (especially in your legs), sudden weight gain, extreme dizziness, chest pain, increased drainage or redness from a wound or incision. Go to the emergency department if you experience a problem with breathing. Weights: If you have a history of swelling or shortness of breath, weigh yourself daily and notify your physician if you have a weight gain of two or more pounds in one day or 5 or more pounds in a week. If you experience any of the warning signs for stroke: Sudden numbness or weakness of the face, arm or leg; especially on one side of the body, sudden confusion, trouble speaking or understanding, sudden trouble seeing in one or both eyes, sudden trouble walking, dizziness, loss of balance or coordination, sudden sever headache with no cause; Call 911 or go to the emergency room. Stroke is a medical emergency. Some risk factors for stroke: Age, cigarette smoking, diabetes, excessive alcohol consumption, family history, high blood pressure, overweight, physical inactivity, prior stroke, heart attack, diagnosis of carotid artery stenosis or other artery disease. If you smoke, STOP: Smoking or tobacco use significantly increases your risk of heart and lung disease. Your chance of disease greatly increases if you continue to smoke. For more information, call the [place] tobacco quit line for smoking cessation 8-472-EKQK-NOW ( ) Referrals: Sakina Philip, RIB BENDER [Primary Care Provider] - (pt reports that him and his PCP Sakina Philip discussed that oncology doctors would be managing his apppointments ) Prescriptions: Fluconazole [Diflucan] 200 mg PO DAILY #14 tab Transmission Status: Received by [facility] 2400 - Attending Attestation I have personally performed a face to face evaluation on this patient. I have reviewed and agree with the care plan. History and Exam by me shows: Assessment and plan: 1.Feveretiology not clear. Infectious versus malignancy versus other. Fevers started a few hours of placing the port. 2.Esophageal adenocarcinoma stage IV 3.Liver abscess causative organism Streptococcus intermedius status post biopsy and drained 11/02/2018 was on Rocephin with plan to treat through 01/11/2019 then transition to by mouth Augmentin Recommendations: Currently patient clinically looks great but continues to have a fever. Not sure if this is due to an underlying infection or due to the malignancy itself. Patient adamant about going home and he said he will not stay another day. Discussed with Dr. Rdz. We will discharge the patient on Augmentin and Diflucan and he needs to follow-up with his infectious disease doctor [facility] on Thursday as previously scheduled. Prognosis poor
[2019-01-07] MEDS ORDERED: Fluconazole 400 MG/200 ML 400 MG/200 ML BAG IVPB SCH (14:30)
--- NOTE | 2019-01-07 15:30 | Discharge Summary ---
- NOTES TO OUTPATIENT PROVIDER Notes to Outpatient Provider: Pt presented with fever. Cultures have been negative. Diflucan has been added. To follow up as scheduled at [facility]. Orders not resulted at time of discharge: Pending orders 01/03/19 23:38 Culture,Blood [BC] Stat Date of Encounter: 01/07/19 Time of Encounter: 15:27 - Discharge Diagnosis (1) Fever Priority: Primary Status: Acute Qualifiers: Fever type: due to other condition Qualified Code(s): R50.81 - Fever presenting with conditions classified elsewhere (2) Esophageal adenocarcinoma Priority: Secondary Status: Chronic (3) Anemia Priority: Secondary Status: Chronic Qualifiers: Anemia type: other cause Other causes of anemia: chronic disease, neoplast ic Qualified Code(s): D63.0 - Anemia in neoplastic disease (4) Liver abscess Priority: Secondary Status: Chronic Hospital course: Mr. Castrejon is a 58 year old male with hx of metastatic adenocarcinoma of esophagus and liver abscess presented with fever after port placement. Mr Castrejon was admitted to [facility]. Cultures were done and negative. He was continued on abx and antifungal added. He continued to feel well despite low grade temps. He had no new issues. Today he feels well. He has appt with [facility] ID on and hemeonc here on Thursday. He will be discharged home today. D/C time 29min - Time Spent with Patient Total time spent providing and/or coordinating discharge services: - Discharge Medications Prescriptions: New Fluconazole [Diflucan] 200 mg PO DAILY #14 tab Acetaminophen [Tylenol] 650 mg PO Q6HR PRN tablet PRN Reason: Mild Pain/Fever Continued Omeprazole [PriLOSEC] 20 mg PO DAILY cefTRIAXone [Rocephin] 2 gm IVPB DAILY Home Medications: Omeprazole [PriLOSEC] 20 mg PO DAILY 02/05/16 [History] cefTRIAXone [Rocephin] 2 gm IVPB DAILY 01/04/19 [History] Acetaminophen [Tylenol] 650 mg PO Q6HR PRN tablet 01/07/19 [Rx] Fluconazole [Diflucan] 200 mg PO DAILY #14 tab 01/07/19 [Rx] Allergies/Adverse Reactions: Allergy/AdvReac Type Severity Reaction Status Date / Time No Known Allergies Allergy Verified 01/03/19 23:27 Date of admission: 01/06/19 17:28 Primary care physician: Sakina Philip CNP Consults: 01/04/19 03:13 Consult to Broommaker [CONS] Routine Reason for SW Consult: picc line, port 01/04/19 13:37 Consult to Oncology Hematology [CONS] Routine Consulting Provider: Abigail Taylor Reason for Consult: anemia, fever in setting of adenocarcinoma of esophagus Call Completed: Yes 01/05/19 09:06 Consult to Infectious Diseases [CONS] Routine Consulting Provider: Infectious Disease Marita Reason for Consult: Patient with hx esophageal adenocarcinoma with mets, not currently undergoing treatment. Has been recieving outpatient IV Rocephin for liver abscess through PICC. Had Port placed 01/03 for chemo, came in evening of 01/03 for fever. Cultures pending, Oncology following. Time Notified: 09:09 Call Completed: Yes Discharging clinician: Hernan Rdz Anticipated date of discharge: 01/07/19 - Constitutional Vitals: Temp Pulse Resp BP Pulse Ox 99.9 F H 82 16 127/67 98 01/07/19 07:25 01/07/19 07:25 01/07/19 07:25 01/07/19 07:25 01/07/19 07:25 General appearance: Present: A&O X 3, answers questions appropriately Exam: See below - Head Head exam: Present: atraumatic, normocephalic - Eye Eye exam: Present: EOMI, conjuntiva pink - ENT ENT exam: Present: mucous membranes moist - Neck Neck exam general surgery: Present: normal inspection - Respiratory Respiratory exam: Present: CTAB. Absent: rales, rhonchi, wheezes - Cardiovascular Cardiovascular exam: Present: RRR. Absent: tachycardia - GI/Abdominal GI/Abdominal exam: Present: soft. Absent: tenderness - Extremities Exam Extremities exam: Present: warm. Absent: tenderness - Neurological Exam Neurological exam: Present: alert, oriented X3 - Skin Skin exam: Present: dry, warm - Patient Status Disposition: Home Health Service Condition: Fair Functional capacity at discharge: independent ambulation Overall status at discharge: patient is progressing back to baseline - Discharge Instructions Instructions: Sepsis (DC), Anemia (GEN) Follow Up With: Sakina Philip CNP [Primary Care Provider] - (pt reports that him and his PCP Sakina Philip discussed that oncology doctors would be managing his apppointments ) Additional Instructions: Follow-up appointments: If there is not an appointment listed below, please call your physician and schedule a follow-up appointment. If you have congestive heart failure and your symptoms return, make an appointment with your physician. Medication List: Carry an up to date list of medications you are taking at all time. We have given you an updated medication list including any new medications that you have been prescribed. Please provide that list to your primary provider Symptoms: If your condition changes or you experience any of the following symptoms, notify your physician immediately: Unusual or worsening pain, fever, persistent nausea and vomiting, bleeding, increase in swelling (especially in your legs), sudden weight gain, extreme dizziness, chest pain, increased drainage or redness from a wound or incision. Go to the emergency department if you experience a problem with breathing. Weights: If you have a history of swelling or shortness of breath, weigh yourself daily and notify your physician if you have a weight gain of two or more pounds in one day or 5 or more pounds in a week. If you experience any of the warning signs for stroke: Sudden numbness or weakness of the face, arm or leg; especially on one side of the body, sudden confusion, trouble speaking or understanding, sudden trouble seeing in one or both eyes, sudden trouble walking, dizziness, loss of balance or coordination, sudden sever headache with no cause; Call 911 or go to the emergency room. Stroke is a medical emergency. Some risk factors for stroke: Age, cigarette smoking, diabetes, excessive alcohol consumption, family history, high blood pressure, overweight, physical inactivity, prior stroke, heart attack, diagnosis of carotid artery stenosis or other artery disease. If you smoke, STOP: Smoking or tobacco use significantly increases your risk of heart and lung disease. Your chance of disease greatly increases if you continue to smoke. For more information, call the [place] tobacco quit line for smoking cessation 3-263-ZEKV-NOW ( ) - Diet and Activity Activity: increase activity as tolerated Diet: advance to your usual diet
--- NOTE | 2019-01-07 15:31 | Physician Discharge Referral ---
Home Health/Hosp Referral Info Transfer to: Home Health Provider in Charge Post Discharge: PCP - Diagnosis (1) Fever Priority: Secondary Status: Acute (2) Esophageal adenocarcinoma Priority: Secondary Status: Acute (3) Anemia Priority: Secondary Status: Acute (4) Liver abscess Priority: Primary Status: Chronic - Respiratory Orders None Smoking Cessation: Smoking cessation has been advised. For more information, call the [place] Tobacco Quit Line at 0-953-KYLQ-NOW. - Diet/Nutrition Diet/Nutrition Orders: Regular - Activity Activity Orders: Up ad kinza - Services Needed Following services are medically necessary services: Home Infusion (Resume home infusion of Rocephin) - Transfer Medications Prescriptions: Fluconazole [Diflucan] 200 mg PO DAILY #14 tab Home Medications: Omeprazole [PriLOSEC] 20 mg PO DAILY 02/05/16 [History] cefTRIAXone [Rocephin] 2 gm IVPB DAILY 01/04/19 [History] Acetaminophen [Tylenol] 650 mg PO Q6HR PRN tablet 01/07/19 [Rx] Fluconazole [Diflucan] 200 mg PO DAILY #14 tab 01/07/19 [Rx] Allergies/Adverse Reactions: Allergy/AdvReac Type Severity Reaction Status Date / Time No Known Allergies Allergy Verified 01/03/19 23:27 Certification: Further, I certify that my clinical findings support that this patient is homebound (i.e. absences from home require considerable and taxing effort and are for medical reasons or oriental orthodox services or infrequently or short duration when for other reasons) because: Homebound Reason: Leaving home requires considerable and taxing effort due to condition Attestation: My signature below is to certify that this patient is under my care and that I, or nurse practitioner, or a physician's plumber's assistant working with me, has a [id number] encounter with this patient.
[2019-01-07 17:34] VITALS: BP 169/72
[2019-01-07] MEDS ORDERED: Aminoglycoside Consult 1 EACH MC ONE (17:46)
== END 2019-01-07 17:47 | disposition home health service (06) | DRG 867 ==
LOC: EMEROOARM 23:20 → 3NENU 23:20 → SUATTDRO 01-04 02:20 → 3NENU 01-04 02:50
PROVIDERS: ADMIT Internal Medicine; ATTEND Internal Medicine

== ENCOUNTER 2019-01-28 13:40 | Observation (INO) ==
[2019-01-28] MEDS ORDERED: 0.9 % Sodium Chloride 1,000 ML IVC ONE (13:58)
[2019-01-28] MEDS ORDERED: Pantoprazole 80 MG in 0.9 % Sodium Chloride 50 ML IVPB ONE (14:06)
[2019-01-28] MEDS ORDERED: Octreotide 50 MCG/ML INJ IVP ONE (14:06)
[2019-01-28] MEDS ORDERED: cefTRIAXone 1,000 MG in 0.9 % Sodium Chloride Mini Bag 100 ML IVPB ONE (14:08)
[2019-01-28] MEDS ORDERED: Octreotide 400 MCG in 0.9 % Sodium Chloride 100 ML IVC SCH (14:15)
--- NOTE | 2019-01-28 14:17 | Emergency Department Note ---
Disposition Clinical Impression: Melena, Esophageal adenocarcinoma, Nodule of right lung Disposition: Admitted As Inpatient Condition: Fair Time of Disposition: 15:59 General Adult HPI - General Chief complaint: ED GI Bleed Stated complaint: GI BLEED/WEAKNESS Time Seen by Provider: 01/28/19 13:50 Source: patient Mode of arrival: ambulatory Limitations: no limitations Nursing Notes Reviewed: Yes Vital Signs Reviewed: Yes - History of Present Illness HPI Narrative: Patient's 58-year-old male history of stage IV esophageal and liver cancer currently seen at [facility] presenting to the emergency department for dark tarry stools. Patient states that an hour half prior to arrival the patient had an episode of dark tarry stools this is the first episode of dark tarry stools he has had. Patient reports that he has been having bloody belches. Patient's other symptoms such as difficulty swallowing, fever, chills, nausea are all present but at baseline. He had his first chemotherapy on 01/10. Patient denies chest pain, shortness of breath, cough, urinary changes. Pain Scale: 6 - Related Data Home Medications Medication Instructions Recorded Confirmed Omeprazole [PriLOSEC] 20 mg PO DAILY 02/05/16 01/28/19 Previous Rx's Medication Instructions Recorded Acetaminophen [Tylenol] 650 mg PO Q6HR PRN tablet 01/07/19 Allergies Allergy/AdvReac Type Severity Reaction Status Date / Time No Known Allergies Allergy Verified 01/28/19 15:28 All systems ED: reviewed and negative except as stated. Review of Systems: As Per HPI Constitutional: Reports: fever, chills, weakness Eyes: Denies: eye pain, eye discharge ENT ED: Denies: ear pain Cardiovascular: Denies: chest pain, palpitations, dyspnea on exertion Respiratory: Denies: cough, dyspnea, wheezes Gastrointestinal: Reports: abdominal pain, nausea. Denies: vomiting Genitourinary: Denies: urgency, dysuria, frequency Musculoskeletal: Denies: back pain, neck pain, joint swelling Integumentary: Denies: rash, abrasion, lesions Neurological: Denies: headache, weakness Psychiatric: Denies: anxiety, depression Endocrine: Denies: fatigue, heat or cold intolerance Hematological/Lymphatic: Denies: easy bleeding, easy bruising Allergic/Immunologic: Denies: facial swelling, urticaria Past Medical History - Past Medical History Attestation: Yes The following information was validated with the patient. Source: patient Medical history: Reports: cancer, GERD Psychiatric history: Reports: no psych history - Social History Smoking Status: Never smoker Smokeless Tobacco Status: No Alcohol use: Reports: occasionally Drug use: Reports: none Physical Exam - General Limitations: no limitations General appearance: alert, in no apparent distress - Head Head exam: atraumatic, normocephalic - Eye Eye exam: Present: normal appearance, PERRL, EOMI. Absent: scleral icterus, conjunctival injection - ENT ENT exam: normal exam, normal oropharynx, mucous membranes moist - Neck Neck exam: Present: normal inspection, full ROM. Absent: trachea midline - Chest Chest inspection: Present: normal inspection, symmetric chest wall rise - Respiratory Respiratory exam: Present: normal lung sounds bilaterally. Absent: respiratory distress, wheezes - Cardiovascular Cardiovascular exam: Present: regular rate, normal rhythm, normal heart sounds - Abdominal Exam Abdominal exam: Present: soft, Non-Tender. Absent: tenderness, distention, gua rding - Extremities Exam Extremities exam: Present: normal inspection, full ROM - Back Exam Back exam: Present: normal inspection, full ROM - Neurological Exam Neurological exam: Present: alert, oriented X3 - Psychiatric Psychiatric exam: Present: normal affect, normal mood - Skin Skin exam: Present: warm, dry Course Vital Signs Temperature 98.1 F 01/28/19 13:42 Pulse Rate 90 01/28/19 13:42 Respiratory Rate 18 01/28/19 13:42 Blood Pressure 108/57 01/28/19 13:42 O2 Sat by Pulse Oximetry 98 01/28/19 13:42 Temperature 100.1 F H 01/28/19 18:19 Pulse Rate 102 01/28/19 17:00 Respiratory Rate 17 01/28/19 18:19 Blood Pressure 132/68 01/28/19 18:19 O2 Sat by Pulse Oximetry 96 01/28/19 18:19 Oxygen Delivery Oxygen Delivery Room Air Medical Decision Making - [facility] Narrative Medical decision making narrative: Patient 58-year-old male history of esophageal and liver cancer presenting emergency department with dark tarry stools. Patient has been burping up blood after his chemotherapy a couple weeks ago. His first episode of dark tarry stools. Patient is otherwise at baseline. Patient has required 5 units of blood over the past week. I will perform a basic laboratory evaluation to assess for his hemoglobin level. I will start treated octreotide, Protonix, and ceftriaxone. Patient's last endoscopy was performed at [facility] in November. Patient's cancer care is transitioned here to [facility] as the patient is no longer a surgical candidate at [facility]. Spoke to Dr. Beard about the patient he says there will be on-call over the weekend for endoscopy procedure on the [place]. Spoke with the hospitalist Dr. Segundo who is agreed to admit the patient. He asked me to give the patient 5 mg of IV vitamin K will perform this. - Medical Records Medical records reviewed: Yes I reviewed the patient's medical records. - Lab Data Lab results reviewed: Yes I reviewed the patient's lab results. Result diagrams: 01/28/19 13:59 01/28/19 14:47 Lab Results 01/28/19 01/28/19 01/28/19 Range/Units 13:59 13:59 14:05 WBC 10.5 (4.3-11.1) K/mcL RBC 3.22 L (4.19-5.50) M/mcL Hgb 8.6 L (12.9-16.9) g/dL Hct 27.7 L (37.5-50.1) % MCV 86.0 (83.0-100.0) fL MCH 26.7 L (28.0-33.3) pg MCHC 31.0 L (31.6-35.5) g/dL RDW 15.4 H (11.5-14.5) % Plt Count 320 (140-400) K/mcL MPV 9.7 (9.4-12.4) fL Immature Gran % 0.5 (0-4) % Seg Neutrophils % 79.6 % Lymphocytes % 9.4 % Monocytes % 9.9 % Eosinophils % 0.3 % Basophils % 0.3 % Neutrophils # 8.3 (1.6-8.9) K/mcL Lymphocytes # 1.0 (0.6-4.6) K/mcL Monocytes # 1.0 (0.0-1.3) K/mcL Eosinophils # 0.0 (0.0-0.6) K/mcL Basophils # 0.0 (0.0-0.2) K/mcL PT 19.2 H (9.4-12.1) Seconds INR 1.7 APTT 29.8 (26.0-36.0) Seconds Sodium (136-145) mEq/L Potassium (3.5-5.1) mEq/L Chloride (98-107) mEq/L Carbon Dioxide (23-29) mEq/L BUN (6-20) mg/dL Creatinine (0.70-1.30) mg/dL Est GFR ( Amer) (> 60) Est GFR (Non-Af Amer) (> 60) BUN/Creatinine Ratio (6-26) Glucose (70-105) mg/dL Calculated Osmolality (280-300) Calcium (8.6-10.3) mg/dL Total Bilirubin (0.3-1.0) mg/dL AST (13-39) Units/L ALT (7-52) Units/L Alkaline Phosphatase (34-104) Units/L Serum Total Protein (6.4-8.9) g/dL Albumin (3.5-5.7) g/dL Globulin (2.4-3.5) g/dL Albumin/Globulin Ratio (1.1-2.2) Specimen Rejected Hemolyzed 01/28/19 Range/Units 14:47 WBC (4.3-11.1) K/mcL RBC (4.19-5.50) M/mcL Hgb (12.9-16.9) g/dL Hct (37.5-50.1) % MCV (83.0-100.0) fL MCH (28.0-33.3) pg MCHC (31.6-35.5) g/dL RDW (11.5-14.5) % Plt Count (140-400) K/mcL MPV (9.4-12.4) fL Immature Gran % (0-4) % Seg Neutrophils % % Lymphocytes % % Monocytes % % Eosinophils % % Basophils % % Neutrophils # (1.6-8.9) K/mcL Lymphocytes # (0.6-4.6) K/mcL Monocytes # (0.0-1.3) K/mcL Eosinophils # (0.0-0.6) K/mcL Basophils # (0.0-0.2) K/mcL PT (9.4-12.1) Seconds INR APTT (26.0-36.0) Seconds Sodium 131 L (136-145) mEq/L Potassium 4.5 (3.5-5.1) mEq/L Chloride 99 (98-107) mEq/L Carbon Dioxide 27 (23-29) mEq/L BUN 15 (6-20) mg/dL Creatinine 0.81 (0.70-1.30) mg/dL Est GFR ( Amer) > 60 (> 60) Est GFR (Non-Af Amer) > 60 (> 60) BUN/Creatinine Ratio 19 (6-26) Glucose 110 H (70-105) mg/dL Calculated Osmolality 273 L (280-300) Calcium 8.5 L (8.6-10.3) mg/dL Total Bilirubin 0.6 (0.3-1.0) mg/dL AST 48 H (13-39) Units/L ALT 27 (7-52) Units/L Alkaline Phosphatase 224 H (34-104) Units/L Serum Total Protein 5.8 L (6.4-8.9) g/dL Albumin 2.8 L (3.5-5.7) g/dL Globulin 3.0 (2.4-3.5) g/dL Albumin/Globulin Ratio 0.9 L (1.1-2.2) Specimen Rejected - Radiology Data Radiology results reviewed: Yes I reviewed the patient's radiology results. Chest X-Ray 01/28/19 15:01 IMPRESSION: Questionable nodular opacities within the right lung the largest measuring up to 1.6 cm in the upper lung. Recommend dedicated CT of the chest for further evaluation. D/ / Valencia Carpenter MD / Valencia Carpenter MD Interpreting Provider: Valencia Carpenter MD - EKG Data EKG #1 EKG attestation: Yes I reviewed and interpreted this EKG. EKG results narrative: EKG performed at 1355 reviewed by myself intervention sinus rhythm at rate of 90, GA 125, curious 82, QTC 476. Normal axis. There are no acute ST changes no acute T-wave changes no other signs of ischemia. No prior EKG. Attestation Statement - Attestation Attestation: I, Kahlil Jeffries, examined this patient and my medical decision-making was reviewed with the PAPER WOOD CUTTER/PA/Advanced Practice Nurse/Resident Physician. I agree with the documented findings, disposition and treatment plan as described except to the extent set forth below. 58-year-old male presents emergency Department with concerns of GI bleeding and weakness. Patient states he has had emesis that has been bloody and contained clots. He has a history of esophageal cancer and recently underwent chemotherapy. Patient has been anemic multiple times in the past few weeks and has received multiple transfusions. He follows with Dr. Chirinos with oncology. He noticed dark tarry stools today for the first time and was counseled to come the emergency department for further evaluation. Patient was anemic today at 8.6 which is higher than he has been in the past however he did recently receive blood transfusion of 1 unit packed red blood cells within the past few days. Patient does admit to feeling weak and fatigued. Chest x-ray did not show evidence of pneumomediastinum however it did show a possible nodule in the upper lungs. Patient was updated regarding laboratory and imaging results. Patient will require further imaging while in the hospital. Patient comfortable with the plan for admission to hospital for further care and evaluation.
[2019-01-28 14:19] LABS: Basophils % 0.3 %; Eosinophils % 0.3 %; Hematocrit 27.7 % (37.5-50.1); Hemoglobin 8.6 g/dL (12.9-16.9); Immature Granulocytes % 0.5 % (0-4); Lymphocytes % 9.4 %; Mean Corpuscular Hemoglobin 26.7 pg (28.0-33.3); Mean Platelet Volume 9.7 fL (9.4-12.4); Monocytes % 9.9 %; Neutrophils # 8.3 K/mcL (1.6-8.9); Platelet Count 320 K/mcL (140-400); Red Blood Count 3.22 M/mcL (4.19-5.50); Red Cell Distribution Width 15.4 % (11.5-14.5); Segmented Neutrophils % 79.6 %; White Blood Count 10.5 K/mcL (4.3-11.1)
[2019-01-28 14:27] LABS: INR 1.7; Prothrombin Time 19.2 Seconds (9.4-12.1)
[2019-01-28 14:29] LABS: Activated Partial Thrombo Time 29.8 Seconds (26.0-36.0)
[2019-01-28 15:23] LABS: Alanine Aminotransferase 27 Units/L (7-52); Albumin 2.8 g/dL (3.5-5.7); Albumin/Globulin Ratio 0.9 (1.1-2.2); Alkaline Phosphatase 224 Units/L (34-104); Aspartate Amino Transferase 48 Units/L (13-39); BUN/Creatinine Ratio 19 (6-26); Bilirubin,Total 0.6 mg/dL (0.3-1.0); Blood Urea Nitrogen 15 mg/dL (6-20); Calcium 8.5 mg/dL (8.6-10.3); Carbon Dioxide 27 mEq/L (23-29); Chloride 99 mEq/L (98-107); Glucose 110 mg/dL (70-105); Osmolality,Calculated 273 (280-300); Potassium 4.5 mEq/L (3.5-5.1); Sodium 131 mEq/L (136-145); Total Protein 5.8 g/dL (6.4-8.9); eGFR For African Americans > 60 (> 60); eGFR For Non-African Americans > 60 (> 60)
[2019-01-28] MEDS ORDERED: Ondansetron 4 MG/2 ML VIAL IVP PRN (15:57)
[2019-01-28] MEDS ORDERED: Naloxone 0.4 MG/ML INJ IVP PRN (15:57)
[2019-01-28] MEDS ORDERED: Ringers Solution, Lactated 1,000 ML IVC SCH ×2 (16:00→23:59)
--- NOTE | 2019-01-28 16:19 | Internal Med History&Physical ---
Date of Encounter: 01/28/19 Time of Encounter: 15:50 Internal Medicine - H&P: HPI Chief complaint: melena History of present illness: Mr. Castrejon is a 58 year old male with history of metastatic esophageal cancer (inoperable), who presented to the ED after an episode of melena. 1 episode noted this morning but he did have 5U pRBC transfusion at [facility] since for progressively worsening anemia. Patient denies any chest pain, shortness of breath, lightheadedness, bright red blood per rectum, hematochezia, hematemesis, or hemoptysis. No abdominal pain, nausea/vomiting, fever/chills, or dysuria. Patient also denies any headache, blurring of vision, slurring of speech, focal weakness/numbness. He called his oncologist about the event who then directed the pt to the ED for further evaluation. In the ED, he was afebrile and hemodynamically stable. Labwork showed hemoglobin of 8.6 which is an improvement from yesterday. INR was 1.7 and mild derangement LFT noted. Chest x-ray did not show any acute cardiopulmonary process but there was a quest ionable right lung nodularity of 1.6cm. was given IV Rocephin, IV Protonix, Vit K, octreotide drip, and is admitted for further management. Past Med Surg Social Fam HX - Past Medical History Attestation: Yes The following information was validated with the patient. Medical history: cancer, GERD Additional medical history: Metastatic ESOPHAGEAL CANCER Psychiatric history: no psych history - Past Surgical History Additional surgical history: throat surgery, LEFT FOOT - Social History Smoking Status: Never smoker Smokeless Tobacco Status: No Alcohol use: occasionally Drug use: none - Family History Mother Living Status: Still Living Hx Family Cardiac Disorders: Yes (stroke 1979) Father Living Status: Hx Family Cancer: Yes (lung) Internal Medicine - H&P: Meds Omeprazole [PriLOSEC] 20 mg PO DAILY 02/05/16 [History] Acetaminophen [Tylenol] 650 mg PO Q6HR PRN tablet 01/07/19 [Rx] Lido-Prilo Kartik Pack 01/28/19 [History] Ondansetron ODT [Zofran ODT] 4 mg SL Q8HR 01/28/19 [History] Prochlorperazine Maleate [Compazine] 10 mg PO Q8HR 01/28/19 [History] Allergy/AdvReac Type Severity Reaction Status Date / Time No Known Allergies Allergy Verified 01/28/19 15:28 All Systems PM: A 10-system review of systems was performed and is negative for pertinent findings except as documented above in the HPI. - Constitutional Vitals: Temp Pulse Resp BP Pulse Ox 98.1 F 99 21 138/77 96 01/28/19 13:42 01/28/19 15:32 01/28/19 15:32 01/28/19 15:32 01/28/19 15:32 Exam: General: Alert and oriented, not in acute distress. Cachectic HEENT:EOMI, pupils equal, round and reactive. Cardiovascular:Normal S1 & S2, No JVD. Pulse regular. Lungs: clear to auscultation, no wheezes/rales Abdomen:Soft, non-tender, no rigidity. Extremities:No deformity or swelling Neurological:Normal cognition and motor skills. Non-focal Skin:Normal color, no rash, no lesions. Pulses:Carotid and radial pulses normal +2. Rest of the physical exam is non contributory Internal Med - H&P Results - Labs CBC & Chem 7: 01/28/19 13:59 01/28/19 14:47 Labs: Short CBC 01/28/19 Range/Units 13:59 WBC 10.5 (4.3-11.1) K/mcL Hgb 8.6 L (12.9-16.9) g/dL Hct 27.7 L (37.5-50.1) % Plt Count 320 (140-400) K/mcL Neutrophils # 8.3 (1.6-8.9) K/mcL BMP 01/28/19 14:47 Sodium 131 L Potassium 4.5 Chloride 99 Carbon Dioxide 27 BUN 15 Creatinine 0.81 Glucose 110 H Calcium 8.5 L Liver Function 01/28/19 Range/Units 14:47 Total Bilirubin 0.6 (0.3-1.0) mg/dL AST 48 H (13-39) Units/L ALT 27 (7-52) Units/L Alkaline Phosphatase 224 H (34-104) Units/L Albumin 2.8 L (3.5-5.7) g/dL - Impressions ITS Impressions Chest X-Ray 01/28/19 15:01 IMPRESSION: Questionable nodular opacities within the right lung the largest measuring up to 1.6 cm in the upper lung. Recommend dedicated CT of the chest for further evaluation. D/ / Valencia Carpenter MD / Valencia Carpenter MD Interpreting Provider: Valencia Carpenter MD - Assessment and Plan (1) Melena Current Visit: Yes Status: Acute Assessment and plan: One episode of melena in a patient with known metastatic esophageal carcinoma which is inoperable required 5U pRBC transfusion over the last week Hb 8.6 (was 8.2 yesterday), patient is clinically stable Continue PPI twice a day trend H&H Nothing by mouth after midnight, GI consult for possible EGD tomorrow If the bleeding source turns out to be the tumor itself, may require radiation therapy. (2) Esophageal adenocarcinoma Current Visit: Yes Status: Chronic Assessment and plan: metastatic to liver, ?now with 1.6cm R UL nodule extremely poor prognosis outpt oncology follow up (3) DVT prophylaxis Current Visit: Yes Status: Acute Assessment and plan: EPCD - Time Spent With Patient Total time spent is greater than 50% in coordination of care (as documented) at patient's floor/unit and/or counseling patient: 25 - 35 minutes
[2019-01-28] MEDS ORDERED: Pantoprazole 40 MG VIAL IVP SCH (18:00)
--- NOTE | 2019-01-28 18:54 | Electrocardiograph Report ---
[place] [id number] Test Date: 2019-01-28 Pat Name: Darrel Castrejon Department: EXAMF2 Room: 2A Gender: M Community Aide: : 1960 Requested By: Kahlil Jeffries Order Number: [id number] Reading MD: Moisés Buitrago Measurements Intervals [place] Rate: 90 P: 39 SD: 125 QRS: 12 QRSD: 92 T: 23 QT: 389 QTc: 476 Interpretive Statements Sinus rhythm Borderline prolonged QT interval Electronically Signed On 01-28-2019 18:53:19 EDT by Moisés Buitrago
[2019-01-28 21:50] LABS: Hematocrit 25.6 % (37.5-50.1); Hemoglobin 8.2 g/dL (12.9-16.9)
[2019-01-28] MEDS ORDERED: Acetaminophen 325 MG TABLET PO ONE (22:27)
[2019-01-29 05:09] LABS: Basophils % 0.3 %; Eosinophils % 0.4 %; Hematocrit 27.2 % (37.5-50.1); Hemoglobin 8.3 g/dL (12.9-16.9); Immature Granulocytes % 0.8 % (0-4); Lymphocytes # 0.9 K/mcL (0.6-4.6); Lymphocytes % 9.7 %; Mean Corpuscular HGB Conc 30.5 g/dL (31.6-35.5); Mean Corpuscular Hemoglobin 26.2 pg (28.0-33.3); Mean Corpuscular Volume 85.8 fL (83.0-100.0); Mean Platelet Volume 9.8 fL (9.4-12.4); Monocytes # 0.9 K/mcL (0.0-1.3); Monocytes % 9.1 %; Neutrophils # 7.7 K/mcL (1.6-8.9); Platelet Count 332 K/mcL (140-400); Red Blood Count 3.17 M/mcL (4.19-5.50); Red Cell Distribution Width 15.5 % (11.5-14.5); Segmented Neutrophils % 79.7 %; White Blood Count 9.7 K/mcL (4.3-11.1)
[2019-01-29 05:15] LABS: INR 1.8; Prothrombin Time 20.8 Seconds (9.4-12.1)
[2019-01-29 05:30] LABS: BUN/Creatinine Ratio 15 (6-26); Blood Urea Nitrogen 13 mg/dL (6-20); Calcium 8.1 mg/dL (8.6-10.3); Carbon Dioxide 24 mEq/L (23-29); Chloride 100 mEq/L (98-107); Glucose 132 mg/dL (70-105); Osmolality,Calculated 272 (280-300); Potassium 4.5 mEq/L (3.5-5.1); Sodium 130 mEq/L (136-145); eGFR For African Americans > 60 (> 60); eGFR For Non-African Americans > 60 (> 60)
[2019-01-29] MEDS ORDERED: Pantoprazole 40 MG VIAL IVP SCH (06:00)
[2019-01-29] MEDS ORDERED: Acetaminophen IV 1,000 MG/100 ML INFUS..BTL IVPB ONE (09:18)
--- NOTE | 2019-01-29 10:14 | Discharge Summary ---
- NOTES TO OUTPATIENT PROVIDER Notes to Outpatient Provider: Follow up with Oncology as outpatient Date of Encounter: 01/29/19 Time of Encounter: 08:45 - Discharge Diagnosis (1) Melena Priority: Primary Status: Acute (2) Esophageal adenocarcinoma Priority: Secondary Status: Chronic (3) DVT prophylaxis Priority: Secondary Status: Acute Hospital course: Mr. Castrejon is a 58 year old male with history of metastatic esophageal cancer (inoperable), who was admitted after an episode of melena. Over the last week, he did receive a total of 5U pRBC transfusion at [facility] for progressively worsening anemia. His hb was 8.6 on presentation but it remained stable around 8. Discussed with both surgery and GI who did not feel that urgent endoscopy was indicated given his hemodynamics as well as Hb and he was discharged after 1U pRBC with repeat H&H in 3 days. He was also advised to seek for medical care immediately if he develops recurrent melena or rectal bleeding as he may require urgent radiotherapy. Prognosis is guarded Discharge discussed with: patient, family, nurse, resourcing consultant - Time Spent with Patient Total time spent providing and/or coordinating discharge services: 31 mins - Discharge Medications Prescriptions: Continued Acetaminophen [Tylenol] 650 mg PO Q6HR PRN tablet PRN Reason: Mild Pain/Fever Changed Omeprazole [PriLOSEC] 40 mg PO DAILY #60 Home Medications: Acetaminophen [Tylenol] 650 mg PO Q6HR PRN tablet 01/07/19 [Rx] Omeprazole [PriLOSEC] 40 mg PO DAILY #60 01/29/19 [Rx] Allergies/Adverse Reactions: Allergy/AdvReac Type Severity Reaction Status Date / Time No Known Allergies Allergy Verified 01/28/19 15:28 Date of admission: 01/28/19 16:22 Primary care physician: Sakina Philip CNP Consults: 01/28/19 15:53 Consult to Gastroenterology [CONS] Stat Consulting Provider: Gastroenterology Marita Reason for Consult: GI bleed Call Completed: Yes 01/28/19 18:21 Consult to Nutrition [CONS] Routine Comment: Consulting Provider: NUTRITION Reason for Dietary Consult: MST Score - Constitutional Vitals: Temp Pulse Resp BP Pulse Ox 99.1 F 94 16 102/59 91 01/29/19 07:27 01/29/19 07:27 01/29/19 07:27 01/29/19 07:27 01/29/19 07:27 Exam: General: Alert and oriented, not in acute distress. Cachectic Cardiovascular:Normal S1 & S2, No JVD. Pulse regular. Lungs: clear to auscultation, no wheezes/rales Abdomen:Soft, non-tender, no rigidity. Extremities:No deformity or swelling Neurological:Normal cognition and motor skills. Non-focal Skin:Normal color, no rash, no lesions. - Patient Status Disposition: Home, Self-Care Condition: Fair Functional capacity at discharge: independent ambulation Overall status at discharge: patient is progressing back to baseline - Discharge Instructions Follow Up With: Sakina Philip, [employer] [Primary Care Provider] - - Diet and Activity Activity: resume usual activities as tolerated Diet: advance to your usual diet
[2019-01-29] MEDS ORDERED: 0.9 % Sodium Chloride 250 ML ONE (11:44)
[2019-01-29 15:41] VITALS: BP 127/71
== END 2019-01-29 15:52 | disposition home or self-care (01) ==
LOC: 2ANU 13:40 → EMEROOARM 13:40 → SUATTDRO 16:22 → 2ANU 17:52
PROVIDERS: ADMIT Internal Medicine; ATTEND Internal Medicine

== ENCOUNTER 2019-02-04 09:06 | Observation (INO) ==
[2019-02-04 09:41] LABS: Basophils % 0.1 %; Hematocrit 21.2 % (37.5-50.1); Hemoglobin 6.8 g/dL (12.9-16.9); Immature Granulocytes % 1.5 % (0-4); Lymphocytes % 7.9 %; Mean Corpuscular HGB Conc 32.1 g/dL (31.6-35.5); Mean Corpuscular Hemoglobin 27.8 pg (28.0-33.3); Mean Corpuscular Volume 86.5 fL (83.0-100.0); Mean Platelet Volume 9.8 fL (9.4-12.4); Monocytes # 0.8 K/mcL (0.0-1.3); Monocytes % 6.5 %; Neutrophils # 10.4 K/mcL (1.6-8.9); Platelet Count 192 K/mcL (140-400); Red Blood Count 2.45 M/mcL (4.19-5.50); Red Cell Distribution Width 15.9 % (11.5-14.5); White Blood Count 12.4 K/mcL (4.3-11.1)
[2019-02-04 09:50] LABS: Alanine Aminotransferase 36 Units/L (7-52); Albumin 2.4 g/dL (3.5-5.7); Albumin/Globulin Ratio 0.9 (1.1-2.2); Alkaline Phosphatase 464 Units/L (34-104); Aspartate Amino Transferase 113 Units/L (13-39); BUN/Creatinine Ratio 20 (6-26); Bilirubin,Direct 0.5 mg/dL (0.0-0.2); Bilirubin,Indirect 0.6 mg/dL (0.0-1.2); Bilirubin,Total 1.1 mg/dL (0.3-1.0); Blood Urea Nitrogen 16 mg/dL (6-20); Calcium 7.7 mg/dL (8.6-10.3); Carbon Dioxide 24 mEq/L (23-29); Chloride 98 mEq/L (98-107); Globulin 2.6 g/dL (2.4-3.5); Glucose 100 mg/dL (70-105); Magnesium 1.8 mg/dL (1.6-2.6); Osmolality,Calculated 273 (280-300); Potassium 3.9 mEq/L (3.5-5.1); Sodium 131 mEq/L (136-145); eGFR For African Americans > 60 (> 60); eGFR For Non-African Americans > 60 (> 60)
[2019-02-04 09:54] LABS: INR 1.6; Prothrombin Time 17.9 Seconds (9.4-12.1)
[2019-02-04 10:05] LABS: Bilirubin,Urine Negative (Negative); Blood,Urine Negative (Negative); Clarity,Urine Clear (Clear); Color,Urine Yellow (Yellow); Glucose,Urine (UA) Normal (Normal); Ketones,Urine Negative (Negative); Leukocyte Esterase,Urine Negative (Negative); Nitrite,Urine Negative (Negative); Protein,Urine Negative (Neg-Trace); Specific Gravity,Urine 1.011 (1.010-1.025)
[2019-02-04] MEDS ORDERED: 0.9 % Sodium Chloride 1,000 ML IVC ONE (10:18)
[2019-02-04] MEDS ORDERED: *HR* LORazepam 2 MG/ML VIAL IVP ONE (10:19)
[2019-02-04] MEDS ORDERED: Ondansetron 4 MG/2 ML VIAL IVP ONE (10:19)
[2019-02-04] MEDS ORDERED: *HR* FentaNYL (PF) 100 MCG/2 ML VIAL IVP ONE (10:19)
[2019-02-04 10:42] LABS: Troponin I 0.05 ng/mL (< 0.04)
[2019-02-04] MEDS ORDERED: Ondansetron 4 MG/2 ML VIAL IVP PRN (11:22)
[2019-02-04] MEDS ORDERED: Naloxone 0.4 MG/ML INJ IVP PRN (11:22)
[2019-02-04] MEDS ORDERED: 0.9 % Sodium Chloride 250 ML IVC SCH (11:30)
[2019-02-04] MEDS ORDERED: Acetaminophen 325 MG TABLET PO PRN (11:31)
[2019-02-04] MEDS ORDERED: *HR* Meperidine 25 MG/ML SYRINGE IVP ONE (13:41)
[2019-02-04] MEDS ORDERED: Isovue-370 500 ML BOTTLE PO ONE (15:26)
[2019-02-04 16:47] VITALS: BP 90/53
[2019-02-04] MEDS ORDERED: Pantoprazole 40 MG VIAL IVP SCH (18:00)
== END 2019-02-04 19:38 | disposition other institution (70) ==
LOC: EMEROOARM 09:06 → 3ANU 09:06
PROVIDERS: ADMIT Internal Medicine; ATTEND Internal Medicine